=== PATIENT | female | born 1985 | race Caucasian/White ===

== ENCOUNTER 2016-04-10 16:35 | Emergency (ER) | payer OTHER ==
[2016-04-10] MEDS ORDERED: ONDANSETRON 4 MG ORAL DISINTEGRATING TAB (S0181) As Ordered ONE (17:06)
[2016-04-10 17:26] LABS: BASO % 0.4 % (0.0-1.0); EOS # 0.2 K/mm3 (0.0-0.50); LARGE UNSTAINED CELL # 0.2 K/mm3 (0.0-0.4); LARGE UNSTAINED CELL % 1.8 % (0.0-4.0); LYMPH # 2.1 K/mm3 (1.5-6.5); LYMPH % 25.1 % (24.0-44.0); MEAN CORPUSCULAR HEMOGLOBIN 31.2 pg (27.0-33.0); MEAN CORPUSCULAR HGB CONC 34.1 g/dl (32.0-36.5); MEAN CORPUSCULAR VOLUME 91.6 fl (80.0-96.0); MONO # 0.6 K/mm3 (0.0-0.8); MONO % 7.2 % (0.0-5.0); NEUTROPHILS # 5.2 K/mm3 (1.8-7.7); NEUTROPHILS % 62.6 % (36.0-66.0); PLATELET COUNT, AUTOMATED 194 k/mm3 (150-450); RED CELL DISTRIBUTION WIDTH 12.2 % (11.5-14.5); WHITE BLOOD COUNT 8.3 K/mm3 (4.0-10.0)
[2016-04-10 17:26] LABS: CONTROL LINE UCG INT CTR LINE PRESENT
[2016-04-10 17:49] LABS: ANION GAP 8 MEQ/L (8-16); BLOOD UREA NITROGEN 15 MG/DL (7-18); CALCIUM LEVEL 8.8 MG/DL (8.5-10.1); CARBON DIOXIDE LEVEL 27 MEQ/L (21-32); CHLORIDE LEVEL 109 MEQ/L (98-107); CREATININE FOR GFR 0.53 MG/DL (0.55-1.02); GLOMERULAR FILTRATION RATE > 60.0 (>60); GLUCOSE, FASTING 96 MG/DL (70-105); POTASSIUM SERUM 4.1 MEQ/L (3.5-5.1); SODIUM LEVEL 144 MEQ/L (136-145)
--- NOTE | 2016-04-10 18:01 | REP ---
Clinical: Cough . Comparison: None . Technique: PA and lateral. Findings: The mediastinum and cardiac silhouette are normal. The lung nickerson are clear and without acute consolidation, effusion, or pneumothorax. The skeletal structures are intact and normal. Impression: 1. No acute cardiopulmonary process. Signed by Asad Jefferson MD 04/10/2016 05:52 P
--- NOTE | 2016-04-10 18:31 | EDDOCDS ---
Physician Documentation [facility] Name: Xena Caro Age: 30 yrs Sex: Female : 1985 Arrival Date: 04/10/2016 Time: 16:35 Bed PR Private MD: Disposition: 04/10/16 18:05 Discharged to Home/Self Care. Impression: Acute sinusitis, Cough, Nausea and vomiting, Vomiting. - Condition is Stable. - Discharge Instructions: Diarrhea, Clear Liquid Diet, Nausea and Vomiting, Sinusitis, Adult, Cough, Adult. - Prescriptions for Reglan 10 mg Oral Tablet - take 1 tablet by ORAL route every 6 hours take 30 minutes before meals and at bedtime; 20 tablet. Zithromax Z- Jun 250 mg Oral Tablet - take 1 tablet by ORAL route as directed for 5 days Day 1- take two tablets once. Day 2, 3, 4 , 5 take one tablet once daily.; 6 tablet. - Medication Reconciliation, Local Pharmacy Hours form. - [facility]; When: 2 - 3 days; Reason: Recheck today's complaints, Continuance of care. - Problem is new. - Symptoms have improved. - Notes: USE MEDICATIONS INSTRUCTED, FOLLOW UP WITH THE GRADUATE MEDICAL PROGRAM, RETURN TO THE ER IF THE SYMPTOMS WORSEN OR BECOME CONCERNING Historical: - Allergies: Neurontin (Dystonic reaction); seafood (Anaphylaxis); - Home Meds: 1. Ventolin Rotahaler/Rotacaps Inhl 200 mcg as needed - PMHx: Asthma; back pain; - PSHx: 3 c-sections; - Social history: Smoking status: Patient uses tobacco products, heavy tobacco smoker. No barriers to communication noted, The patient speaks fluent [place] Of [place], Speaks appropriately for age. - : The pt / caregiver states he / she is not on anticoagulants. Home medication list is obtained from the patient. - Exposure Risk Screening:: None identified. 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 1 in. (154.94 cm) (R); Pain 5/10; 16:36 Body Mass Index 58.20 (139.71 kg, 154.94 cm) lr2 MDM: 16:58 Financial registration complete. ks16 16:59 [facility] Payment Agreement was scanned into [employer] and attached to record. ks16 17:04 Ondansetron ODT Oral Disintegrating Tablet 4 mg PO once ordered. ck7 17:04 Obtain sample by nasopharyngeal swab ordered. ck7 17:04 UA Ordered. EDMS 17:04 CBC with Diff Ordered. EDMS 17:04 MED Profile Ordered. EDMS 17:04 -Influenza A&B Rapid Antigen - Nose Ordered. EDMS 17:06 Chest, 2 View (pa\E\lat) Ordered. EDMS 17:19 UCG- In Lab Ordered. EDMS 18:00 UA Reviewed. ck7 18:00 CBC with Diff Reviewed. ck7 18:00 MED Profile Reviewed. ck7 18:00 -Influenza A&B Rapid Antigen - Nose Reviewed. ck7 18:00 UCG- In Lab Reviewed. ck7 Administered Medications: 17:17 Drug: Ondansetron ODT 4 mg [ondansetron 4 mg disintegrating tablet (1 tabs)] Route: PO; mlb1 Signatures: Dispatcher [employer] EDAZ Santana Jacobsen RN RN mlb1 Pj Fernandez, RPA-C RPA-Cck7 Elena Coreas,LILIANA RN kc3 Talita Hwang, Reg Reg ks16 The chart was reviewed and I authenticate all verbal orders and agree with the evaluation and treatment provided.Corrections: (The following items were deleted from the chart) 17:18 17:04 UCG by Nursing ordered. ck7 mlb1 Attachments: 16:59 [facility] Payment Agreement [email or web address] MTDD
--- NOTE | 2016-04-10 18:31 | EDDOCDS ---
Nurse's Notes [facility] Name: Xena Caro Age: 30 yrs Sex: Female : 1985 Arrival Date: 04/10/2016 Time: 16:35 Bed PR Private MD: Diagnosis: Acute sinusitis;Cough;Nausea and vomiting;Vomiting Presentation: 04/10 16:38 Presenting complaint: Patient states: n/v, breast tenderness, dizziness, congestion and kc3 fever at home x 2 days. Pt reports not sure if or not. Adult Sepsis Screening: The patient does not have new or worsening altered mentation. Patient's respiratory rate is less than 22. Systolic blood pressure is greater than 100. Patient has a qSOFA score of 0- Negative Sepsis Screen. Suicide/Homicide risk assessment- the patient denies having any suicidal and/or homicidal ideations and does not present with any other emotional, behavioral or mental health complaints. 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 Transition of care: patient was not received from another setting of care. 16:38 Acuity: JASON Level 4 kc3 16:38 Method Of Arrival: Walkin/Carried/Asstd kc3 Triage Assessment: 16:41 General: Appears in no apparent distress, comfortable, Behavior is appropriate for age, kc3 cooperative. Pain: Location: head Pain currently is 5 out of 10 on a pain scale. HIV screening NA for this visit Offered previously. Respiratory: Respiratory effort is even, unlabored. GI: Reports nausea. 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 Ventolin Rotahaler/Rotacaps Inhl 200 mcg as needed - PMHx: Asthma; back pain; - PSHx: 3 c-sections; - Social history: Smoking status: Patient uses tobacco products, heavy tobacco smoker. No barriers to communication noted, The patient speaks fluent Lithuanian, Speaks appropriately for age. - : The pt / caregiver states he / she is not on anticoagulants. Home medication list is obtained from the patient. - Exposure Risk Screening:: None identified. Screenin:26 Screening information is obtained from. mlb1 Assessment: 18:26 General: pt not found in waiting, called several times over the past 15 mins. mlb1 Vital Signs: 16:36 BP 178 / 67; Pulse 88; Resp 18; Temp 98.6(O); Pulse Ox 99% on R/A; Weight 139.71 kg lr2 (R); Height 5 ft. 1 in. (154.94 cm) (R); Pain 5/10; 16:36 Body Mass Index 58.20 (139.71 kg, 154.94 cm) lr2 Vitals: 16:36 Log In Time: April 10, 2016 at 16:35. lr2 ED Course: 16:36 Patient visited by Nicolasa Simental. lr2 16:36 Patient moved to Waiting lr2 16:39 Patient moved to Pre RCE lr2 16:40 Triage Initiated kc3 16:42 [facility] ck7 16:42 Joe Corbin MD is Attending Physician. ck7 16:42 Patient visited by Pj Fernandez RPA-C. ck7 16:42 Patient moved to Triage 1 kc3 16:59 [facility] Payment Agreement was scanned into [employer] and attached to record. ks16 17:17 Patient visited by Pj Fernandez RPA-C. ck7 17:17 -Influenza A&B Rapid Antigen - Nose Sent. mlb1 17:17 MED Profile Sent. mlb1 17:17 CBC with Diff Sent. mlb1 17:18 UA Sent. mlb1 17:21 Patient moved to TR1 mlb1 18:00 Patient visited by Pj Fernandez RPA-C. ck7 18:04 [facility] is Referral Physician. ck7 18:07 Patient moved to PR2 / 26 mlb1 18:30 Patient visited by Santana Jacobsen, LILIANA. mlb1 Administered Medications: 17:17 Drug: Ondansetron ODT 4 mg [ondansetron 4 mg disintegrating tablet (1 tabs)] Route: PO; mlb1 Order Results: Lab Order: UA; SPEC'M 04/10/16 17:10 Test: APPEARANCE, URINE; Value: HAZY; Range: CLEAR; Status: F Test: COLOR, URINE; Value: YELLOW; Range: YELLOW; Status: F Test: PH,URINE; Value: 7.0; Range: 5.0-9.0; Units: UNITS; Status: F Test: SPECIFIC GRAVITY URINE AUTO; Value: 1.016; Range: 1.002-1.035; Status: F Test: PROTEIN, URINE AUTO; Value: NEGATIVE; Range: NEGATIVE; Units: mg/dL; Status: F Test: GLUCOSE, URINE (UA) AUTO; Value: NEGATIVE; Range: NEGATIVE; Units: mg/dL; Status: F Test: KETONE, URINE AUTO; Value: NEGATIVE; Range: NEGATIVE; Units: mg/dL; Status: F Test: UROBILINOGEN, URINE AUTO; Value: 0.2; Range: 0.0-2.0; Units: mg/dL; Status: F Test: BILIRUBIN, URINE AUTO; Value: NEGATIVE; Range: NEGATIVE; Status: F Test: NITRITE, URINE AUTO; Value: NEGATIVE; Range: NEGATIVE; Status: F Test: LEUKOCYTE ESTERASE, URINE AUTO; Value: TRACE; Range: NEGATIVE; Abnormal: Above high normal; Status: F Test: BLOOD, URINE BLOOD; Value: NEGATIVE; Range: NEGATIVE; Status: F Test: WBC, URINE AUTO; Value: 7; Range: 0-3; Abnormal: Above high normal; Units: /HPF; Status: F Test: RBC, URINE AUTO; Value: 4; Range: 0-3; Abnormal: Above high normal; Units: /HPF; Status: F Test: BACTERIA, URINE AUTO; Value: NEGATIVE; Range: NEGATIVE; Status: F Test: SQUAMOUS EPITHELIAL CELL UR AU; Value: 3; Range: 0-6; Units: /HPF; Status: F Test: MUCUS, URINE; Value: SMALL; Range: NEGATIVE; Status: F Test: HYALINE CAST, URINE AUTO; Value: 0; Range: 0-1; Units: /LPF; Status: F Lab Order: CBC with Diff; SPEC'M 04/10/16 17:13 Test: WHITE BLOOD COUNT; Value: 8.3; Range: 4.0-10.0; Units: K/mm3; Status: F Test: RED BLOOD COUNT; Value: 4.19; Range: 4.00-5.40; Units: M/mm3; Status: F Test: HEMOGLOBIN; Value: 13.1; Range: 12.0-16.0; Units: g/dl; Status: F Test: HEMATOCRIT; Value: 38.4; Range: 36.0-47.0; Units: %; Status: F Test: MEAN CORPUSCULAR VOLUME; Value: 91.6; Range: 80.0-96.0; Units: fl; Status: F Test: MEAN CORPUSCULAR HEMOGLOBIN; Value: 31.2; Range: 27.0-33.0; Units: pg; Status: F Test: MEAN CORPUSCULAR HGB CONC; Value: 34.1; Range: 32.0-36.5; Units: g/dl; Status: F Test: RED CELL DISTRIBUTION WIDTH; Value: 12.2; Range: 11.5-14.5; Units: %; Status: F Test: PLATELET COUNT, AUTOMATED; Value: 194; Range: 150-450; Units: k/mm3; Status: F Test: NEUTROPHILS %; Value: 62.6; Range: 36.0-66.0; Units: %; Status: F Test: LYMPH %; Value: 25.1; Range: 24.0-44.0; Units: %; Status: F Test: MONO %; Value: 7.2; Range: 0.0-5.0; Abnormal: Above high normal; Units: %; Status: F Test: EOS %; Value: 3.0; Range: 0.0-3.0; Units: %; Status: F Test: BASO %; Value: 0.4; Range: 0.0-1.0; Units: %; Status: F Test: LARGE UNSTAINED CELL %; Value: 1.8; Range: 0.0-4.0; Units: %; Status: F Test: NEUTROPHILS #; Value: 5.2; Range: 1.8-7.7; Units: K/mm3; Status: F Test: LYMPH #; Value: 2.1; Range: 1.5-6.5; Units: K/mm3; Status: F Test: MONO #; Value: 0.6; Range: 0.0-0.8; Units: K/mm3; Status: F Test: EOS #; Value: 0.2; Range: 0.0-0.50; Units: K/mm3; Status: F Test: BASO #; Value: 0.0; Range: 0.0-0.2; Units: K/mm3; Status: F Test: LARGE UNSTAINED CELL #; Value: 0.2; Range: 0.0-0.4; Units: K/mm3; Status: F Lab Order: MED Profile; SPEC'M 04/10/16 17:13 Test: GLUCOSE, FASTING; Value: 96; Range: 70-105; Units: MG/DL; Status: F Test: BLOOD UREA NITROGEN; Value: 15; Range: 7-18; Units: MG/DL; Status: F Test: CREATININE FOR GFR; Value: 0.53; Range: 0.55-1.02; Abnormal: Below low normal; Units: MG/DL; Status: F Test: GLOMERULAR FILTRATION RATE; Value: > 60.0; Range: >60; Status: F Test: SODIUM LEVEL; Value: 144; Range: 136-145; Units: MEQ/L; Status: F Test: POTASSIUM SERUM; Value: 4.1; Range: 3.5-5.1; Units: MEQ/L; Status: F Test: CHLORIDE LEVEL; Value: 109; Range: 98-107; Abnormal: Above high normal; Units: MEQ/L; Status: F Test: CARBON DIOXIDE LEVEL; Value: 27; Range: 21-32; Units: MEQ/L; Status: F Test: ANION GAP; Value: 8; Range: 8-16; Units: MEQ/L; Status: F Test: CALCIUM LEVEL; Value: 8.8; Range: 8.5-10.1; Units: MG/DL; Status: F Test Note: ; Units are mL/min/1.73 m2 Chronic Kidney Disease Staging per NKF: Stage I & II GFR >=60 Normal to Mildly Decreased Stage III GFR 30-59 Moderately Decreased Stage IV GFR 15-29 Severely Decreased Stage V GFR <15 Very Little GFR Left ESRD GFR <15 on TOW BOAT CAPTAIN Lab Order: -Influenza A&B Rapid Antigen - Nose; SPEC'M 04/10/16 17:10 Test: INFLUENZA A RAPID SCR by ICA; Value: INFLUENZA A RESULTS NEGATIVE; Status: F Test: INFLUENZA A RAPID SCR by ICA; Value: Comments:; Status: F Test: INFLUENZA B RAPID SCR by ICA; Value: INFLUENZA B RESULTS NEGATIVE; Status: F Test Note: ; The Influenza test is a direct rapid immunoassay for the qualitative detection of Influenza viral antigen. Cell culture (Viral Culture) testing should be considered to confirm NEGATIVE results and to assist in detecting other viruses that can provide similar clinical symptoms. Please contact the lab within 24 hours ([phone]) if confirmatory testing is desired. Lab Order: UCG- In Lab; SPEC'M 04/10/16 17:08 Test: URINE PREG TEST; Value: NEGATIVE; Range: NEGATIVE; Status: F Outcome: 18:05 Discharge ordered by Provider. ck7 18:27 A call has been made regarding followup for AMA or LWBS , I was unable to contact the mlb1 patient by phone. A letter and discharge instructions has been mailed. 18:28 Discharge Assessment: patient administered narcotics - no. The following High Risk [facility] Discharge criteria are identified: Yes, Kasey Douglas PFS, discharge instructions to be mailed. Eloped from waiting room. Condition: good. 18:30 Patient left the ED. b1 Signatures: Santana Jacobsen, RN RN mlb1 Pj Fernandez, RPA-C RPA-Cck7 Elena Coreas RN RN kc3 Talita Hwang, Reg Reg ks16 Nicolasa Simental2 [facility]
--- NOTE | 2016-04-12 19:31 | EDDOCDS ---
Nurse's Notes [facility] Name: Xena Caro Age: 30 yrs Sex: Female : 1985 Arrival Date: 04/10/2016 Time: 16:35 Bed PR Private MD: Diagnosis: Acute sinusitis;Cough;Nausea and vomiting;Vomiting Presentation: 04/10 16:38 Presenting complaint: Patient states: n/v, breast tenderness, dizziness, congestion and kc3 fever at home x 2 days. Pt reports not sure if or not. Adult Sepsis Screening: The patient does not have new or worsening altered mentation. Patient's respiratory rate is less than 22. Systolic blood pressure is greater than 100. Patient has a qSOFA score of 0- Negative Sepsis Screen. Suicide/Homicide risk assessment- the patient denies having any suicidal and/or homicidal ideations and does not present with any other emotional, behavioral or mental health complaints. 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 Transition of care: patient was not received from another setting of care. 16:38 Acuity: JASON Level 4 kc3 16:38 Method Of Arrival: Walkin/Carried/Asstd kc3 Triage Assessment: 16:41 General: Appears in no apparent distress, comfortable, Behavior is appropriate for age, kc3 cooperative. Pain: Location: head Pain currently is 5 out of 10 on a pain scale. HIV screening NA for this visit Offered previously. Respiratory: Respiratory effort is even, unlabored. GI: Reports nausea. 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 Ventolin Rotahaler/Rotacaps Inhl 200 mcg as needed - PMHx: Asthma; back pain; - PSHx: 3 c-sections; - Social history: Smoking status: Patient uses tobacco products, heavy tobacco smoker. No barriers to communication noted, The patient speaks fluent [place]an, Speaks appropriately for age. - : The pt / caregiver states he / she is not on anticoagulants. Home medication list is obtained from the patient. - Exposure Risk Screening:: None identified. Screenin:26 Screening information is obtained from. mlb1 Assessment: 18:26 General: pt not found in waiting, called several times over the past 15 mins. mlb1 Vital Signs: 16:36 BP 178 / 67; Pulse 88; Resp 18; Temp 98.6(O); Pulse Ox 99% on R/A; Weight 139.71 kg lr2 (R); Height 5 ft. 1 in. (154.94 cm) (R); Pain 5/10; 16:36 Body Mass Index 58.20 (139.71 kg, 154.94 cm) lr2 Vitals: 16:36 Log In Time: April 10, 2016 at 16:35. lr2 ED Course: 16:36 Patient visited by Nicolasa Simental. lr2 16:36 Patient moved to Waiting lr2 16:39 Patient moved to Pre RCE lr2 16:40 Triage Initiated kc3 16:42 Pj Fernandez RPA-C is [facility]. ck7 16:42 Joe Corbin MD is Attending Physician. ck7 16:42 Patient visited by Pj Fernandez RPA-C. ck7 16:42 Patient moved to Triage 1 kc3 16:59 [facility] Payment Agreement was scanned into [employer] and attached to record. ks16 17:17 Patient visited by Pj Fernandez RPA-C. ck7 17:17 -Influenza A&B Rapid Antigen - Nose Sent. mlb1 17:17 MED Profile Sent. mlb1 17:17 CBC with Diff Sent. mlb1 17:18 UA Sent. mlb1 17:21 Patient moved to TR1 mlb1 18:00 Patient visited by Pj Fernandez RPA-C. ck7 18:04 [facility] is Referral Physician. ck7 18:07 Patient moved to PR mlb1 18:30 Patient visited by Santana Jacobsen, LILIANA. mlb1 18:41 Chest, 2 View (pa\E\lat) Returned. EDMS 04/11 09:04 T-Sheet-- Draft Copy was scanned into [employer] and attached to record. [facility] Administered Medications: 04/10 17:17 Drug: Ondansetron ODT 4 mg [ondansetron 4 mg disintegrating tablet (1 tabs)] Route: PO; mlb1 Order Results: Lab Order: UA; SPEC'M 04/10/16 17:10 Test: APPEARANCE, URINE; Value: HAZY; Range: CLEAR; Status: F Test: COLOR, URINE; Value: YELLOW; Range: YELLOW; Status: F Test: PH,URINE; Value: 7.0; Range: 5.0-9.0; Units: UNITS; Status: F Test: SPECIFIC GRAVITY URINE AUTO; Value: 1.016; Range: 1.002-1.035; Status: F Test: PROTEIN, URINE AUTO; Value: NEGATIVE; Range: NEGATIVE; Units: mg/dL; Status: F Test: GLUCOSE, URINE (UA) AUTO; Value: NEGATIVE; Range: NEGATIVE; Units: mg/dL; Status: F Test: KETONE, URINE AUTO; Value: NEGATIVE; Range: NEGATIVE; Units: mg/dL; Status: F Test: UROBILINOGEN, URINE AUTO; Value: 0.2; Range: 0.0-2.0; Units: mg/dL; Status: F Test: BILIRUBIN, URINE AUTO; Value: NEGATIVE; Range: NEGATIVE; Status: F Test: NITRITE, URINE AUTO; Value: NEGATIVE; Range: NEGATIVE; Status: F Test: LEUKOCYTE ESTERASE, URINE AUTO; Value: TRACE; Range: NEGATIVE; Abnormal: Above high normal; Status: F Test: BLOOD, URINE BLOOD; Value: NEGATIVE; Range: NEGATIVE; Status: F Test: WBC, URINE AUTO; Value: 7; Range: 0-3; Abnormal: Above high normal; Units: /HPF; Status: F Test: RBC, URINE AUTO; Value: 4; Range: 0-3; Abnormal: Above high normal; Units: /HPF; Status: F Test: BACTERIA, URINE AUTO; Value: NEGATIVE; Range: NEGATIVE; Status: F Test: SQUAMOUS EPITHELIAL CELL UR AU; Value: 3; Range: 0-6; Units: /HPF; Status: F Test: MUCUS, URINE; Value: SMALL; Range: NEGATIVE; Status: F Test: HYALINE CAST, URINE AUTO; Value: 0; Range: 0-1; Units: /LPF; Status: F Lab Order: CBC with Diff; SPEC'M 04/10/16 17:13 Test: WHITE BLOOD COUNT; Value: 8.3; Range: 4.0-10.0; Units: K/mm3; Status: F Test: RED BLOOD COUNT; Value: 4.19; Range: 4.00-5.40; Units: M/mm3; Status: F Test: HEMOGLOBIN; Value: 13.1; Range: 12.0-16.0; Units: g/dl; Status: F Test: HEMATOCRIT; Value: 38.4; Range: 36.0-47.0; Units: %; Status: F Test: MEAN CORPUSCULAR VOLUME; Value: 91.6; Range: 80.0-96.0; Units: fl; Status: F Test: MEAN CORPUSCULAR HEMOGLOBIN; Value: 31.2; Range: 27.0-33.0; Units: pg; Status: F Test: MEAN CORPUSCULAR HGB CONC; Value: 34.1; Range: 32.0-36.5; Units: g/dl; Status: F Test: RED CELL DISTRIBUTION WIDTH; Value: 12.2; Range: 11.5-14.5; Units: %; Status: F Test: PLATELET COUNT, AUTOMATED; Value: 194; Range: 150-450; Units: k/mm3; Status: F Test: NEUTROPHILS %; Value: 62.6; Range: 36.0-66.0; Units: %; Status: F Test: LYMPH %; Value: 25.1; Range: 24.0-44.0; Units: %; Status: F Test: MONO %; Value: 7.2; Range: 0.0-5.0; Abnormal: Above high normal; Units: %; Status: F Test: EOS %; Value: 3.0; Range: 0.0-3.0; Units: %; Status: F Test: BASO %; Value: 0.4; Range: 0.0-1.0; Units: %; Status: F Test: LARGE UNSTAINED CELL %; Value: 1.8; Range: 0.0-4.0; Units: %; Status: F Test: NEUTROPHILS #; Value: 5.2; Range: 1.8-7.7; Units: K/mm3; Status: F Test: LYMPH #; Value: 2.1; Range: 1.5-6.5; Units: K/mm3; Status: F Test: MONO #; Value: 0.6; Range: 0.0-0.8; Units: K/mm3; Status: F Test: EOS #; Value: 0.2; Range: 0.0-0.50; Units: K/mm3; Status: F Test: BASO #; Value: 0.0; Range: 0.0-0.2; Units: K/mm3; Status: F Test: LARGE UNSTAINED CELL #; Value: 0.2; Range: 0.0-0.4; Units: K/mm3; Status: F Lab Order: MED Profile; SPEC'M 04/10/16 17:13 Test: GLUCOSE, FASTING; Value: 96; Range: 70-105; Units: MG/DL; Status: F Test: BLOOD UREA NITROGEN; Value: 15; Range: 7-18; Units: MG/DL; Status: F Test: CREATININE FOR GFR; Value: 0.53; Range: 0.55-1.02; Abnormal: Below low normal; Units: MG/DL; Status: F Test: GLOMERULAR FILTRATION RATE; Value: > 60.0; Range: >60; Status: F Test: SODIUM LEVEL; Value: 144; Range: 136-145; Units: MEQ/L; Status: F Test: POTASSIUM SERUM; Value: 4.1; Range: 3.5-5.1; Units: MEQ/L; Status: F Test: CHLORIDE LEVEL; Value: 109; Range: 98-107; Abnormal: Above high normal; Units: MEQ/L; Status: F Test: CARBON DIOXIDE LEVEL; Value: 27; Range: 21-32; Units: MEQ/L; Status: F Test: ANION GAP; Value: 8; Range: 8-16; Units: MEQ/L; Status: F Test: CALCIUM LEVEL; Value: 8.8; Range: 8.5-10.1; Units: MG/DL; Status: F Test Note: ; Units are mL/min/1.73 m2 Chronic Kidney Disease Staging per NKF: Stage I & II GFR >=60 Normal to Mildly Decreased Stage III GFR 30-59 Moderately Decreased Stage IV GFR 15-29 Severely Decreased Stage V GFR <15 Very Little GFR Left ESRD GFR <15 on PARACHUTE INSPECTOR Lab Order: -Influenza A&B Rapid Antigen - Nose; SPEC'M 04/10/16 17:10 Test: INFLUENZA A RAPID SCR by ICA; Value: INFLUENZA A RESULTS NEGATIVE; Status: F Test: INFLUENZA A RAPID SCR by ICA; Value: Comments:; Status: F Test: INFLUENZA B RAPID SCR by ICA; Value: INFLUENZA B RESULTS NEGATIVE; Status: F Test Note: ; The Influenza test is a direct rapid immunoassay for the qualitative detection of Influenza viral antigen. Cell culture (Viral Culture) testing should be considered to confirm NEGATIVE results and to assist in detecting other viruses that can provide similar clinical symptoms. Please contact the lab within 24 hours ([phone]) if confirmatory testing is desired. Lab Order: UCG- In Lab; SPEC'M 04/10/16 17:08 Test: URINE PREG TEST; Value: NEGATIVE; Range: NEGATIVE; Status: F Radiology Order: Chest, 2 View (pa\E\lat) Test: Chest, 2 View (pa\E\lat) REASON FOR EXAMINATION: Cough; Clinical: Cough .; ; Comparison: None .; ; Technique: PA and lateral.; ; Findings:; The mediastinum and cardiac silhouette are normal. The lung nickerson are clear and; without acute consolidation, effusion, or pneumothorax. The skeletal structures; are intact and normal.; ; Impression:; 1. No acute cardiopulmonary process.; ; ; Signed by; Asad Jefferson MD 04/10/2016 05:52 P; Outcome: 18:05 Discharge ordered by Provider. ck7 18:27 A call has been made regarding followup for AMA or LWBS , I was unable to contact the b1 patient by phone. A letter and discharge instructions has been mailed. 18:28 Discharge Assessment: patient administered narcotics - no. The following High Risk [facility] Discharge criteria are identified: Yes, Kasey Douglas PFS, discharge instructions to be mailed. Eloped from waiting room. Condition: good. 18:30 Patient left the ED. [facility] Signatures: Dispatcher [employer] EDMS Santana Jacobsen RN RN mlb1 Pj Fernandez, RPA-C RPA-Cck7 Elena Coreas,RN RN [email or web address] Talita Hwang, Reg Reg ks16 Ramiro, Nicolasa Anguiano Chart Complete MTDD
--- NOTE | 2016-04-12 19:31 | EDDOCDS ---
Physician Documentation [facility] Name: Xena Caro Age: 30 yrs Sex: Female : 1985 Arrival Date: 04/10/2016 Time: 16:35 Bed PR Private MD: Disposition: 04/10/16 18:05 Discharged to Home/Self Care. Impression: Acute sinusitis, Cough, Nausea and vomiting, Vomiting. - Condition is Stable. - Discharge Instructions: Diarrhea, Clear Liquid Diet, Nausea and Vomiting, Sinusitis, Adult, Cough, Adult. - Prescriptions for Reglan 10 mg Oral Tablet - take 1 tablet by ORAL route every 6 hours take 30 minutes before meals and at bedtime; 20 tablet. Zithromax Z- Jun 250 mg Oral Tablet - take 1 tablet by ORAL route as directed for 5 days Day 1- take two tablets once. Day 2, 3, 4 , 5 take one tablet once daily.; 6 tablet. - Medication Reconciliation, Local Pharmacy Hours form. - [facility] up[facility]; When: 2 - 3 days; Reason: Recheck today's complaints, Continuance of care. - Problem is new. - Symptoms have improved. - Notes: USE MEDICATIONS INSTRUCTED, FOLLOW UP WITH THE GRADUATE MEDICAL PROGRAM, RETURN TO THE ER IF THE SYMPTOMS WORSEN OR BECOME CONCERNING Historical: - Allergies: Neurontin (Dystonic reaction); seafood (Anaphylaxis); - Home Meds: 1. Ventolin Rotahaler/Rotacaps Inhl 200 mcg as needed - PMHx: Asthma; back pain; - PSHx: 3 c-sections; - Social history: Smoking status: Patient uses tobacco products, heavy tobacco smoker. No barriers to communication noted, The patient speaks fluent Australian, Speaks appropriately for age. - : The pt / caregiver states he / she is not on anticoagulants. Home medication list is obtained from the patient. - Exposure Risk Screening:: None identified. 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 1 in. (154.94 cm) (R); Pain 5/10; 16:36 Body Mass Index 58.20 (139.71 kg, 154.94 cm) lr2 MDM: 16:58 Financial registration complete. ks16 16:59 [facility] Payment Agreement was scanned into [email or web address] and attached to record. [email or web address] 17:04 Ondansetron ODT Oral Disintegrating Tablet 4 mg PO once ordered. ck7 17:04 Obtain sample by nasopharyngeal swab ordered. ck7 17:04 UA Ordered. EDMS 17:04 CBC with Diff Ordered. EDMS 17:04 MED Profile Ordered. EDMS 17:04 -Influenza A&B Rapid Antigen - Nose Ordered. EDMS 17:06 Chest, 2 View (pa\E\lat) Ordered. EDMS 17:19 UCG- In Lab Ordered. EDMS 18:00 UA Reviewed. ck7 18:00 CBC with Diff Reviewed. ck7 18:00 MED Profile Reviewed. ck7 18:00 -Influenza A&B Rapid Antigen - Nose Reviewed. ck7 18:00 UCG- In Lab Reviewed. 04/11 09:04 T-Sheet-- Draft Copy was scanned into [email or web address] and attached to record. [facility] Administered Medications: 04/10 17:17 Drug: Ondansetron ODT 4 mg [ondansetron 4 mg disintegrating tablet (1 tabs)] Route: PO; mlb1 Signatures: Dispatcher [employer] Santana Purdy RN RN mlb1 Pj Fernandez, RPA-C RPA-Cck7 Elena Coreas RN RN aashish3 Talita Hwang, Reg Reg ks16 Roseanne Rubio [facility] The chart was reviewed and I authenticate all verbal orders and agree with the evaluation and treatment provided.Corrections: (The following items were deleted from the chart) 17:18 17:04 UCG by Nursing ordered. ck7 mlb1 Attachments: 16:59 [facility] Payment Agreement 04/11 09:04 T-Sheet-- Draft Copy [facility] Chart Complete MTDD
--- NOTE | 2016-04-12 19:31 | EDDOCDS ---
Physician Documentation [facility] Name: Xena Caro Age: 30 yrs Sex: Female : 1985 Arrival Date: 04/10/2016 Time: 16:35 Bed PR Private MD: Disposition: 04/10/16 18:05 Discharged to Home/Self Care. Impression: Acute sinusitis, Cough, Nausea and vomiting, Vomiting. - Condition is Stable. - Discharge Instructions: Diarrhea, Clear Liquid Diet, Nausea and Vomiting, Sinusitis, Adult, Cough, Adult. - Prescriptions for Reglan 10 mg Oral Tablet - take 1 tablet by ORAL route every 6 hours take 30 minutes before meals and at bedtime; 20 tablet. Zithromax Z- Jun 250 mg Oral Tablet - take 1 tablet by ORAL route as directed for 5 days Day 1- take two tablets once. Day 2, 3, 4 , 5 take one tablet once daily.; 6 tablet. - Medication Reconciliation, Local Pharmacy Hours form. - Follow up: [facility]; When: 2 - 3 days; Reason: Recheck today's complaints, Continuance of care. - Problem is new. - Symptoms have improved. - Notes: USE MEDICATIONS INSTRUCTED, FOLLOW UP WITH THE GRADUATE MEDICAL PROGRAM, RETURN TO THE ER IF THE SYMPTOMS WORSEN OR BECOME CONCERNING Historical: - Allergies: Neurontin (Dystonic reaction); seafood (Anaphylaxis); - Home Meds: 1. Ventolin Rotahaler/Rotacaps Inhl 200 mcg as needed - PMHx: Asthma; back pain; - PSHx: 3 c-sections; - Social history: Smoking status: Patient uses tobacco products, heavy tobacco smoker. No barriers to communication noted, The patient speaks fluent Czech, Speaks appropriately for age. - : The pt / caregiver states he / she is not on anticoagulants. Home medication list is obtained from the patient. - Exposure Risk Screening:: None identified. 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 1 in. (154.94 cm) (R); Pain 5/10; 16:36 Body Mass Index 58.20 (139.71 kg, 154.94 cm) lr2 MDM: 16:58 Financial registration complete. ks16 16:59 [facility] Payment Agreement was scanned into [employer] and attached to record. [email or web address] 17:04 Ondansetron ODT Oral Disintegrating Tablet 4 mg PO once ordered. ck7 17:04 Obtain sample by nasopharyngeal swab ordered. ck7 17:04 UA Ordered. EDMS 17:04 CBC with Diff Ordered. EDMS 17:04 MED Profile Ordered. EDMS 17:04 -Influenza A&B Rapid Antigen - Nose Ordered. EDMS 17:06 Chest, 2 View (pa\E\lat) Ordered. EDMS 17:19 UCG- In Lab Ordered. EDMS 18:00 UA Reviewed. ck7 18:00 CBC with Diff Reviewed. ck7 18:00 MED Profile Reviewed. ck7 18:00 -Influenza A&B Rapid Antigen - Nose Reviewed. ck7 18:00 UCG- In Lab Reviewed. 04/11 09:04 T-Sheet-- Draft Copy was scanned into [employer] and attached to record. [facility] Administered Medications: 04/10 17:17 Drug: Ondansetron ODT 4 mg [ondansetron 4 mg disintegrating tablet (1 tabs)] Route: PO; mlb1 Signatures: Dispatcher [employer] Santana Purdy RN RN mlb1 Pj Fernandez, RPA-C RPA-Cck7 Elena Coreas RN RN aashish3 Talita Hwang, Reg Reg ks16 Roseanne Rubio [facility] The chart was reviewed and I authenticate all verbal orders and agree with the evaluation and treatment provided.Corrections: (The following items were deleted from the chart) 17:18 17:04 UCG by Nursing ordered. ck7 mlb1 Attachments: 16:59 [facility] Payment Agreement 04/11 09:04 T-Sheet-- Draft Copy [facility] Chart Complete MTDD
== END 2016-04-10 18:26 | disposition left against medical advice (07) ==
LOC: M ED 16:35
DX: J01.90 Acute sinusitis, unspecified (principal); R05 Cough; R11.2 Nausea with vomiting, unspecified; R19.7 Diarrhea, unspecified; J45.909 Unspecified asthma, uncomplicated; M54.9 Dorsalgia, unspecified; Z72.0 Tobacco use; Z88.8 Allergy status to other drugs, medicaments and biological substances; Z91.013 Allergy to seafood

== ENCOUNTER 2016-08-03 11:36 | Emergency (ER) | payer OTHER ==
[~2016-08-03] VITALS: Ht 157.5 cm; Wt 142.9 kg
[2016-08-03] MEDS ORDERED: IBUP-1022 PO (11:53)
[2016-08-03 12:35] VITALS: BP 134/82
[2016-08-03] MEDS ORDERED: IBUP80TA PO (12:35)
[2016-08-03] MEDS ORDERED: AMOX500C PO (12:35)
== END 2016-08-03 12:47 | disposition home or self-care (01) ==
LOC: M ED 12:14
DX: S39.012A Strain of muscle, fascia and tendon of lower back, initial encounter (principal); V47.5XXA Car driver injured in collision with fixed or stationary object in traffic accident, initial encounter; Y92.410 Unspecified street and highway as the place of occurrence of the external cause; Y93.9 Activity, unspecified; Y99.8 Other external cause status; K02.9 Dental caries, unspecified; J45.909 Unspecified asthma, uncomplicated; F17.200 Nicotine dependence, unspecified, uncomplicated; Z91.013 Allergy to seafood

== ENCOUNTER 2016-09-19 08:29 | Emergency (ER) | payer OTHER ==
[~2016-09-19] VITALS: Ht 154.9 cm; Wt 127.0 kg
[~2016-09-19 08:29] MED LIST: AMOX500C PO; IBUP-1022 PO; IBUP80TA PO
[2016-09-19 08:43] VITALS: BP 142/86
[2016-09-19] MEDS ORDERED: ALBU17IN INH ×2 (08:46→09:03)
[2016-09-19] MEDS ORDERED: AMOX500C PO (09:05)
== END 2016-09-19 09:09 | disposition home or self-care (01) ==
LOC: M ED 08:29
DX: F41.1 Generalized anxiety disorder (principal); R51 Headache; R42 Dizziness and giddiness; J45.909 Unspecified asthma, uncomplicated; F17.210 Nicotine dependence, cigarettes, uncomplicated; Z88.8 Allergy status to other drugs, medicaments and biological substances; Z91.013 Allergy to seafood

== ENCOUNTER 2016-11-10 16:29 | Emergency (ER) | payer OTHER ==
[~2016-11-10] VITALS: Ht 157.5 cm; Wt 139.0 kg
[~2016-11-10 16:29] MED LIST changes: +ALBU17IN INH
[2016-11-10 17:33] LABS: ADD MORPHOLOGY? NO; BASO # 0.1 10^3/uL (0.0-0.2); BASO % 0.4 % (0.0-1.0); EOS # 0.5 10^3/uL (0.0-0.50); EOS % 4.1 % (0.0-3.0); IMMATURE GRANULOCYTE % 0.3 % (0-0); LYMPH # 2.5 10^3/uL (1.5-4.5); LYMPH % 21.9 % (24.0-44.0); MEAN CORPUSCULAR HEMOGLOBIN 31.2 pg (27.0-33.0); MEAN CORPUSCULAR HGB CONC 33.6 g/dl (32.0-36.5); MEAN CORPUSCULAR VOLUME 92.9 fl (80.0-96.0); MONO # 0.9 10^3/uL (0.0-0.8); MONO % 7.6 % (0.0-5.0); NEUTROPHILS # 7.3 10^3/uL (1.8-7.7); NEUTROPHILS % 65.7 % (36.0-66.0); PLATELET COUNT, AUTOMATED 236 10^3/uL (150-450); RED CELL DISTRIBUTION WIDTH 11.9 % (11.5-14.5); WHITE BLOOD COUNT 11.2 10^3/uL (4.0-10.0)
[2016-11-10 17:59] LABS: ALKALINE PHOSPHATASE 53 U/L (45-117); ALT/SGPT 31 U/L (12-78); ANION GAP 6 MEQ/L (8-16); AST/SGOT 14 U/L (15-37); BLOOD UREA NITROGEN 17 MG/DL (7-18); CALCIUM LEVEL 8.7 MG/DL (8.5-10.1); CARBON DIOXIDE LEVEL 25 MEQ/L (21-32); CHLORIDE LEVEL 110 MEQ/L (98-107); CREATININE FOR GFR 0.59 MG/DL (0.55-1.02); GLOMERULAR FILTRATION RATE > 60.0 (>60); GLUCOSE, FASTING 88 MG/DL (70-105); SODIUM LEVEL 141 MEQ/L (136-145)
[2016-11-10 18:00] LABS: ALBUMIN 3.7 GM/DL (3.2-5.2); ALBUMIN/GLOBULIN RATIO 1.19 (1.00-1.93); BILIRUBIN,DIRECT < 0.1 MG/DL (0.0-0.2); BILIRUBIN,TOTAL 0.3 MG/DL (0.2-1.0); TOTAL PROTEIN 6.8 GM/DL (6.4-8.2)
[2016-11-10] MEDS ORDERED: BACT800T5 PO (18:08)
[2016-11-10 18:14] VITALS: BP 131/101
== END 2016-11-10 18:17 | disposition home or self-care (01) ==
LOC: M ED 16:29
DX: N39.0 Urinary tract infection, site not specified (principal); Z32.02 Encounter for pregnancy test, result negative; Z72.0 Tobacco use

== ENCOUNTER 2017-01-13 09:22 | Emergency (ER) | payer OTHER ==
[~2017-01-13] VITALS: Ht 157.5 cm; Wt 130.9 kg
[~2017-01-13 09:22] MED LIST changes: +BACT800T5 PO
[2017-01-13 09:23] VITALS: BP 149/75
[2017-01-13] MEDS ORDERED: PERC5TAB12 PO (09:44)
== END 2017-01-13 10:04 | disposition home or self-care (01) ==
LOC: M ED 09:22
DX: G89.29 Other chronic pain (principal); M25.562 Pain in left knee; J45.909 Unspecified asthma, uncomplicated; Z88.8 Allergy status to other drugs, medicaments and biological substances; Z91.013 Allergy to seafood; F17.210 Nicotine dependence, cigarettes, uncomplicated

== ENCOUNTER → 2017-01-18 | Outpatient (REF) | payer OTHER ==
[~2017-01-18] MED LIST changes: +AMOX500C; +PERC5TAB12 PO
== END ==
LOC: M LAB REF 17:14
PROVIDERS: ATTEND Physician Assistant
DX: N89.8 Other specified noninflammatory disorders of vagina (principal)

== ENCOUNTER 2017-01-20 19:08 | Emergency (ER) | payer OTHER ==
[~2017-01-20] VITALS: Ht 154.9 cm; Wt 130.9 kg
[2017-01-20 19:08] VITALS: BP 186/89
[~2017-01-20 19:08] MED LIST changes: -AMOX500C
[2017-01-20] MEDS ORDERED: AMOX500C (19:21)
== END 2017-01-20 20:42 | disposition left against medical advice (07) ==
LOC: M ED 19:08
DX: Z53.29 Procedure and treatment not carried out because of patient's decision for other reasons (principal)

== ENCOUNTER → 2017-03-16 | Outpatient (REF) | payer OTHER ==
[2017-03-16 13:57] LABS: CONTROL LINE UCG INT CTR LINE PRESENT; URINE PREG TEST NEGATIVE (NEGATIVE)
[2017-03-16 13:59] LABS: AMORPHOUS SEDIMENT SMALL (NEGATIVE); APPEARANCE, URINE CLOUDY (CLEAR); BACTERIA, URINE AUTO NEGATIVE (NEGATIVE); BILIRUBIN, URINE AUTO NEGATIVE (NEGATIVE); BLOOD, URINE BLOOD NEGATIVE (NEGATIVE); COLOR, URINE YELLOW (YELLOW); GLUCOSE, URINE (UA) AUTO NEGATIVE (NEGATIVE); KETONE, URINE AUTO NEGATIVE (NEGATIVE); LEUKOCYTE ESTERASE, URINE AUTO TRACE (NEGATIVE); MUCUS, URINE SMALL (NEGATIVE); NITRITE, URINE AUTO NEGATIVE (NEGATIVE); PROTEIN, URINE AUTO NEGATIVE (NEGATIVE); RBC, URINE AUTO 5 /HPF (0-3); SPECIFIC GRAVITY URINE AUTO 1.026 (1.002-1.035); SQUAMOUS EPITHELIAL CELL UR AU 17 /HPF (0-6); UROBILINOGEN, URINE AUTO 0.2 mg/dL (0.0-2.0); WBC, URINE AUTO 13 /HPF (0-3)
== END ==
LOC: M LAB REF 12:54
DX: N39.0 Urinary tract infection, site not specified (principal)

== ENCOUNTER → 2017-03-28 | Outpatient (REF) | payer OTHER ==
[2017-03-28 19:51] LABS: AMORPHOUS SEDIMENT MODERATE (NEGATIVE); APPEARANCE, URINE TURBID (CLEAR); BACTERIA, URINE AUTO 1+ (NEGATIVE); BILIRUBIN, URINE AUTO NEGATIVE (NEGATIVE); BLOOD, URINE BLOOD NEGATIVE (NEGATIVE); COLOR, URINE YELLOW (YELLOW); GLUCOSE, URINE (UA) AUTO NEGATIVE (NEGATIVE); KETONE, URINE AUTO TRACE mg/dL (NEGATIVE); LEUKOCYTE ESTERASE, URINE AUTO 2+ (NEGATIVE); MUCUS, URINE SMALL (NEGATIVE); NITRITE, URINE AUTO NEGATIVE (NEGATIVE); PROTEIN, URINE AUTO NEGATIVE (NEGATIVE); RBC, URINE AUTO 5 /HPF (0-3); SPECIFIC GRAVITY URINE AUTO 1.033 (1.002-1.035); SQUAMOUS EPITHELIAL CELL UR AU 3 /HPF (0-6); UROBILINOGEN, URINE AUTO 0.2 mg/dL (0.0-2.0); WBC, URINE AUTO 55 /HPF (0-3)
== END ==
LOC: M SFHCPLAZ 17:19
DX: N39.0 Urinary tract infection, site not specified (principal)

== ENCOUNTER → 2017-03-30 | Outpatient (REF) | payer OTHER ==
[2017-03-30 11:19] LABS: ESTIMATED AVERAGE GLUCOSE 123 MG/DL (60-110); HEMOGLOBIN A1c 5.9 %
[2017-03-30 11:36] LABS: ALBUMIN 3.5 GM/DL (3.2-5.2); ALBUMIN/GLOBULIN RATIO 1.17 (1.00-1.93); ALKALINE PHOSPHATASE 59 U/L (45-117); ALT/SGPT 24 U/L (12-78); ANION GAP 7 MEQ/L (8-16); AST/SGOT 13 U/L (7-37); BILIRUBIN,TOTAL 0.3 MG/DL (0.2-1.0); BLOOD UREA NITROGEN 13 MG/DL (7-18); CALCIUM LEVEL 8.6 MG/DL (8.5-10.1); CARBON DIOXIDE LEVEL 27 MEQ/L (21-32); CHLORIDE LEVEL 108 MEQ/L (98-107); CREATININE FOR GFR 0.49 MG/DL (0.55-1.30); GLOMERULAR FILTRATION RATE > 60.0 (>60); GLUCOSE, FASTING 83 MG/DL (70-100); POTASSIUM SERUM 3.8 MEQ/L (3.5-5.1); SODIUM LEVEL 142 MEQ/L (136-145); TOTAL PROTEIN 6.5 GM/DL (6.4-8.2)
== END ==
LOC: M SFHCPLAZ 10:49
DX: R82.4 Acetonuria (principal); Z13.1 Encounter for screening for diabetes mellitus
CPT/HCPCS: 83036

== ENCOUNTER → 2017-04-11 | Outpatient (CLI) | payer OTHER | LOC: M RAD 12:54 | DX: N63.20 Unspecified lump in the left breast, unspecified quadrant (principal) | CPT/HCPCS: 76642 ==

== ENCOUNTER → 2017-07-13 | Outpatient (CLI) | payer OTHER ==
[2017-07-13 21:55] LABS: HCG, SERUM QUANTITATIVE < 1.0 MIU/ML
[2017-07-14 14:19] LABS: CHLAMYDIA DNA AMPLIFICATION NEGATIVE (NEGATIVE); GC DNA AMPLIFICATION NEGATIVE (NEGATIVE)
== END ==
LOC: M WUC 11:34
DX: N91.2 Amenorrhea, unspecified (principal); R30.0 Dysuria
CPT/HCPCS: 84702

== ENCOUNTER 2017-09-13 19:48 | Emergency (ER) | payer OTHER ==
[2017-09-13 21:43] LABS: BASO % 0.3 % (0.0-1.0); EOS # 0.3 10^3/uL (0.0-0.50); EOS % 2.2 % (0.0-3.0); HEMATOCRIT 37.5 % (36.0-47.0); HEMOGLOBIN 12.3 g/dl (12.0-15.5); IMMATURE GRANULOCYTE % 0.2 % (0-3.0); LYMPH % 15.9 % (24.0-44.0); MEAN CORPUSCULAR HEMOGLOBIN 30.3 pg (27.0-33.0); MEAN CORPUSCULAR HGB CONC 32.8 g/dl (32.0-36.5); MEAN CORPUSCULAR VOLUME 92.4 fl (80.0-96.0); MONO # 0.7 10^3/uL (0.0-0.8); NEUTROPHILS # 9.3 10^3/uL (1.8-7.7); NEUTROPHILS % 75.4 % (36.0-66.0); PLATELET COUNT, AUTOMATED 249 10^3/uL (150-450); RED BLOOD COUNT 4.06 10^6/uL (4.00-5.40); RED CELL DISTRIBUTION WIDTH 12.1 % (11.5-14.5); WHITE BLOOD COUNT 12.3 10^3/uL (4.0-10.0)
[2017-09-13] MEDS: IPRATROPIUM 0.5MG/ALBUTEROL 2.5MG INH SOL UD 3ML (DUONEB)(J7620) NEB (21:50)
[2017-09-13 22:00] LABS: ANION GAP 7 MEQ/L (8-16); BLOOD UREA NITROGEN 16 MG/DL (7-18); CALCIUM LEVEL 8.3 MG/DL (8.5-10.1); CARBON DIOXIDE LEVEL 27 MEQ/L (21-32); CHLORIDE LEVEL 107 MEQ/L (98-107); CK-MB VALUE MASS 1.4 NG/ML (<3.6); CPK CREATINE PHOSPHOKINASE 155 U/L (26-192); GLOMERULAR FILTRATION RATE > 60.0 (>60); GLUCOSE, FASTING 98 MG/DL (70-100); POTASSIUM SERUM 3.7 MEQ/L (3.5-5.1); SODIUM LEVEL 141 MEQ/L (136-145); TROPONIN I < 0.02 NG/ML (< 0.10)
[2017-09-13] MEDS ORDERED: ACETAMINOPHEN TAB 650MG DOSE (2X325MG) PO (22:00)
[2017-09-13] MEDS: ACETAMINOPHEN TAB 650MG DOSE (2X325MG) PO (22:15)
== END 2017-09-13 22:45 | disposition home or self-care (01) ==
LOC: M ED 19:48
DX: F41.0 Panic disorder [episodic paroxysmal anxiety] (principal); Z72.0 Tobacco use; Z88.8 Allergy status to other drugs, medicaments and biological substances; Z91.013 Allergy to seafood
CPT/HCPCS: 93005

== ENCOUNTER → 2017-12-28 | Outpatient (REF) | payer OTHER ==
[2017-12-28 18:45] LABS: APPEARANCE, URINE CLOUDY (CLEAR); BACTERIA, URINE AUTO NEGATIVE (NEGATIVE); BILIRUBIN, URINE AUTO NEGATIVE (NEGATIVE); BLOOD, URINE BLOOD NEGATIVE (NEGATIVE); COLOR, URINE YELLOW (YELLOW); GLUCOSE, URINE (UA) AUTO NEGATIVE (NEGATIVE); KETONE, URINE AUTO NEGATIVE (NEGATIVE); LEUKOCYTE ESTERASE, URINE AUTO 1+ (NEGATIVE); MUCUS, URINE MODERATE (NEGATIVE); NITRITE, URINE AUTO NEGATIVE (NEGATIVE); PROTEIN, URINE AUTO NEGATIVE (NEGATIVE); RBC, URINE AUTO 4 /HPF (0-3); SPECIFIC GRAVITY URINE AUTO 1.027 (1.002-1.035); SQUAMOUS EPITHELIAL CELL UR AU 17 /HPF (0-6); UROBILINOGEN, URINE AUTO 0.2 mg/dL (0.0-2.0); WBC, URINE AUTO 26 /HPF (0-3)
== END ==
LOC: M LAB REF 16:58
DX: N39.0 Urinary tract infection, site not specified (principal)

== ENCOUNTER → 2018-01-15 | Outpatient (REF) | payer OTHER, MEDICAID ==
[2018-01-17 13:39] LABS: CHLAMYDIA DNA AMPLIFICATION NEGATIVE (NEGATIVE); GC DNA AMPLIFICATION NEGATIVE (NEGATIVE)
== END ==
LOC: M LAB REF 13:00
DX: Z11.3 Encounter for screening for infections with a predominantly sexual mode of transmission (principal)
CPT/HCPCS: 87591

== ENCOUNTER → 2018-03-20 | Outpatient (REF) | payer OTHER, MEDICAID ==
[~2018-03-20] MED LIST changes: +AMOX500C
[2018-03-20 19:21] LABS: BACTERIA, URINE AUTO NEGATIVE (NEGATIVE); MUCUS, URINE MODERATE (NEGATIVE); RBC, URINE AUTO 3 /HPF (0-3); SQUAMOUS EPITHELIAL CELL UR AU 26 /HPF (0-6); WBC, URINE AUTO 10 /HPF (0-3)
[2018-03-20 22:30] LABS: CHLAMYDIA DNA AMPLIFICATION NEGATIVE (NEGATIVE); GC DNA AMPLIFICATION NEGATIVE (NEGATIVE)
== END ==
LOC: M LAB REF 16:32
PROVIDERS: ATTEND Physician Assistant
DX: R30.0 Dysuria (principal)

== ENCOUNTER → 2018-04-19 | Outpatient (REF) ==
--- NOTE | 2018-04-20 02:41 | REP ---
Clinical: Pain and disability. Technique: AP, lateral, bilateral oblique and sunrise views of the left knee. Findings: Early advanced tricompartmental osteoarthritic degenerative changes are appreciated. Findings include subchondral sclerosis to the tibial plateau and posterior patellar margin along with moderate osteophytosis and joint space narrowing. No acute fracture dislocation. No effusion. Impression: Moderate/Early advanced tricompartmental osteoarthritic degenerative changes. Electronically Signed by Asad Jefferson MD 04/20/2018 02:33 A
== END ==
LOC: M SMT 13:31
PROVIDERS: ATTEND Internal Medicine
DX: Z02.89 Encounter for other administrative examinations (principal)

== ENCOUNTER 2018-05-10 08:56 | Emergency (ER) | payer OTHER ==
[~2018-05-10] VITALS: Ht 154.9 cm; Wt 159.9 kg
[~2018-05-10 08:56] MED LIST changes: +PRENATAL VIT
[2018-05-10] MEDS ORDERED: ACETAMINOPHEN TAB 650MG DOSE (2X325MG) PO ONE (09:30)
[2018-05-10 10:00] LABS: BASO % 0.4 % (0.0-1.0); EOS # 0.3 10^3/uL (0.0-0.50); EOS % 3.7 % (0.0-3.0); HEMATOCRIT 40.4 % (36.0-47.0); LYMPH % 26.4 % (24.0-44.0); MEAN CORPUSCULAR HEMOGLOBIN 29.8 pg (27.0-33.0); MEAN CORPUSCULAR HGB CONC 32.2 g/dl (32.0-36.5); MEAN CORPUSCULAR VOLUME 92.7 fl (80.0-96.0); MONO # 0.5 10^3/uL (0.0-0.8); MONO % 6.5 % (0.0-5.0); NEUTROPHILS # 4.7 10^3/uL (1.8-7.7); NEUTROPHILS % 62.6 % (36.0-66.0); PLATELET COUNT, AUTOMATED 260 10^3/uL (150-450); RED BLOOD COUNT 4.36 10^6/uL (4.00-5.40); WHITE BLOOD COUNT 7.5 10^3/uL (4.0-10.0)
[2018-05-10 10:43] LABS: BLOOD UREA NITROGEN 10 MG/DL (7-18); CALCIUM LEVEL 8.6 MG/DL (8.5-10.1); CARBON DIOXIDE LEVEL 24 MEQ/L (21-32); CHLORIDE LEVEL 112 MEQ/L (98-107); CREATININE FOR GFR 0.61 MG/DL (0.55-1.30); GLOMERULAR FILTRATION RATE > 60.0 (>60); GLUCOSE, FASTING 112 MG/DL (70-100); HCG, SERUM QUANTITATIVE 1706 MIU/ML; POTASSIUM SERUM 3.7 MEQ/L (3.5-5.1); SODIUM LEVEL 143 MEQ/L (136-145)
--- NOTE | 2018-05-10 11:14 | REP ---
FIRST TRIMESTER ULTRASOUND: Real-time sonographic evaluation of the gravid uterus performed utilizing transabdominal and endovaginal technique. There appears to be an intrauterine gestational sac. Mean sac diameter is 7 mm corresponding to the estimated gestational age of 5 weeks 3 days. Uterine length is 11.4. No internal contents are seen within the intrauterine gestational sac. Ovaries are normal in size and echotexture, right ovary measuring 2.7 x 2.4 x 2.1 cm and left ovary 4.1 x 3.9 x 3.2 cm. There is no adnexa mass, torsion or free fluid. Findings may represent a very early intrauterine , possibly missed or ectopic . Suggest correlation with serial quantitative beta hCG values and followup ultrasound. Electronically Signed by Michel Escobar MD 05/10/2018 11:19 A
[2018-05-10 11:15] VITALS: BP 144/82
[2018-05-10] MEDS ORDERED: MACR100C43 PO ×2 (11:25→11:27)
== END 2018-05-10 11:34 | disposition home or self-care (01) ==
LOC: M ED 08:56
DX: O23.31 Infections of other parts of urinary tract in pregnancy, first trimester (principal); Z3A.01 Less than 8 weeks gestation of pregnancy; O99.511 Diseases of the respiratory system complicating pregnancy, first trimester; J45.909 Unspecified asthma, uncomplicated; O99.341 Other mental disorders complicating pregnancy, first trimester; F41.9 Anxiety disorder, unspecified; O99.211 Obesity complicating pregnancy, first trimester; Z88.8 Allergy status to other drugs, medicaments and biological substances; Z91.013 Allergy to seafood; Z91.018 Allergy to other foods; O99.331 Smoking (tobacco) complicating pregnancy, first trimester; F17.210 Nicotine dependence, cigarettes, uncomplicated

== ENCOUNTER → 2018-05-17 | Outpatient (CLI) | payer OTHER, MEDICAID ==
[~2018-05-17] MED LIST changes: +MACR100C43 PO
== END ==
LOC: M SMT 14:44
PROVIDERS: ATTEND Advanced Practice Midwife
DX: O26.851 Spotting complicating pregnancy, first trimester (principal); Z3A.00 Weeks of gestation of pregnancy not specified

== ENCOUNTER → 2018-06-08 | Outpatient (REF) | payer OTHER, MEDICAID | LOC: M LAB REF 17:45 | PROVIDERS: ATTEND Obstetrics & Gynecology | DX: Z34.81 Encounter for supervision of other normal pregnancy, first trimester (principal) ==

== ENCOUNTER → 2018-06-14 | Outpatient (CLI) | payer OTHER, MEDICAID | LOC: M SMT 11:29 | PROVIDERS: ATTEND Specialist | DX: Z34.81 Encounter for supervision of other normal pregnancy, first trimester (principal); Z3A.00 Weeks of gestation of pregnancy not specified ==

== ENCOUNTER 2018-07-17 11:12 | Emergency (ER) | payer MEDICAID, OTHER ==
[~2018-07-17] VITALS: Ht 157.5 cm; Wt 163.3 kg
[2018-07-17] MEDS ORDERED: NS 1,000 ML IV ONE (12:15)
[2018-07-17 12:43] LABS: BASO % 0.4 % (0.0-1.0); EOS # 0.3 10^3/uL (0.0-0.50); EOS % 2.9 % (0.0-3.0); HEMATOCRIT 34.2 % (36.0-47.0); HEMOGLOBIN 11.6 g/dl (12.0-15.5); LYMPH # 2.1 10^3/uL (1.5-4.5); LYMPH % 20.4 % (24.0-44.0); MEAN CORPUSCULAR HEMOGLOBIN 31.5 pg (27.0-33.0); MEAN CORPUSCULAR HGB CONC 33.9 g/dl (32.0-36.5); MEAN CORPUSCULAR VOLUME 92.9 fl (80.0-96.0); MONO # 0.7 10^3/uL (0.0-0.8); MONO % 6.8 % (0.0-5.0); NEUTROPHILS # 7.1 10^3/uL (1.8-7.7); NEUTROPHILS % 69.2 % (36.0-66.0); PLATELET COUNT, AUTOMATED 219 10^3/uL (150-450); RED BLOOD COUNT 3.68 10^6/uL (4.00-5.40); WHITE BLOOD COUNT 10.2 10^3/uL (4.0-10.0)
[2018-07-17 12:52] LABS: INR 1.01; PROTHROMBIN TIME 13.4 SECONDS (12.1-14.4)
[2018-07-17 12:53] LABS: PARTIAL THROMBOPLASTIN TIME 26.5 SECONDS (25.4-37.6)
[2018-07-17 13:26] LABS: ALBUMIN 2.9 GM/DL (3.2-5.2); ALT/SGPT 32 U/L (12-78); BILIRUBIN,DIRECT < 0.1 MG/DL (0.0-0.2); BILIRUBIN,TOTAL 0.2 MG/DL (0.2-1.0); BLOOD UREA NITROGEN 6 MG/DL (7-18); CALCIUM LEVEL 8.8 MG/DL (8.5-10.1); CARBON DIOXIDE LEVEL 23 MEQ/L (21-32); CHLORIDE LEVEL 109 MEQ/L (98-107); CREATININE FOR GFR 0.44 MG/DL (0.55-1.30); GLOMERULAR FILTRATION RATE > 60.0 (>60); GLUCOSE, FASTING 118 MG/DL (70-100); HCG, SERUM QUANTITATIVE 37525 MIU/ML; POTASSIUM SERUM 3.8 MEQ/L (3.5-5.1); SODIUM LEVEL 140 MEQ/L (136-145)
--- NOTE | 2018-07-17 14:21 | REP ---
OB ULTRASOUND: Real-time sonographic evaluation of the gravid uterus is performed. There is a single living intrauterine gestation. Estimated gestational age is 14 weeks 5 days, EDC 01/10/2019. Today's measurements indicate appropriate growth. BPD 29 mm = 15 weeks 2 days, 71st percentile HC 113 mm = 15 weeks 4 days, 80th percentile AC 91 mm = 15 weeks 2 days, 66th percentile Femur length 17 mm = 15 weeks 0 days, 61st percentile HC/AC ratio 1.24 within normal range. Estimated weight 118 grams, 64th percentile. heart rate 157 beats per minute. position is transverse with head toward the maternal left side. Placenta posterior with no abruption. Amniotic fluid appears within normal limits for gestational age. Electronically Signed by Michel Escobar MD 07/18/2018 12:00 P
[2018-07-17 14:23] VITALS: BP 135/57
[2018-07-17] MEDS ORDERED: KEFL500C17 PO (14:32)
== END 2018-07-17 14:40 | disposition home or self-care (01) ==
LOC: M ED 11:12
DX: O23.42 Unspecified infection of urinary tract in pregnancy, second trimester (principal); Z3A.15 15 weeks gestation of pregnancy; O99.512 Diseases of the respiratory system complicating pregnancy, second trimester; O99.332 Smoking (tobacco) complicating pregnancy, second trimester; Z79.899 Other long term (current) drug therapy; Z91.013 Allergy to seafood; Z91.018 Allergy to other foods; Z88.8 Allergy status to other drugs, medicaments and biological substances

== ENCOUNTER → 2018-07-18 | Outpatient (CLI) | payer OTHER ==
[~2018-07-18] MED LIST changes: +KEFL500C17 PO
[2018-07-18 16:10] LABS: HEMATOCRIT 33.9 % (36.0-47.0); HEMOGLOBIN 11.3 g/dl (12.0-15.5); MEAN CORPUSCULAR HEMOGLOBIN 30.5 pg (27.0-33.0); MEAN CORPUSCULAR HGB CONC 33.3 g/dl (32.0-36.5); MEAN CORPUSCULAR VOLUME 91.4 fl (80.0-96.0); PLATELET COUNT, AUTOMATED 193 10^3/uL (150-450); RED BLOOD COUNT 3.71 10^6/uL (4.00-5.40); WHITE BLOOD COUNT 9.2 10^3/uL (4.0-10.0)
[2018-07-18 16:13] LABS: ALT/SGPT 31 U/L (12-78); BILIRUBIN,TOTAL 0.1 MG/DL (0.2-1.0); CREATININE FOR GFR 0.37 MG/DL (0.55-1.30); GLOMERULAR FILTRATION RATE > 60.0 (>60); GLUCOSE CHALLENGE TEST 1 HOUR 127 MG/DL (LESS THAN 140); LDH LACTATE DEHYDROGENASE 147 U/L (84-246)
== END ==
LOC: M WUC 10:43
PROVIDERS: ATTEND Obstetrics & Gynecology
DX: O10.012 Pre-existing essential hypertension complicating pregnancy, second trimester (principal); O99.212 Obesity complicating pregnancy, second trimester; E66.9 Obesity, unspecified

== ENCOUNTER → 2018-08-03 | Outpatient (REF) | payer OTHER ==
[2018-08-03 13:36] LABS: APPEARANCE, URINE HAZY (CLEAR); BACTERIA, URINE AUTO 1+ (NEGATIVE); BILIRUBIN, URINE AUTO NEGATIVE (NEGATIVE); BLOOD, URINE BLOOD NEGATIVE (NEGATIVE); COLOR, URINE YELLOW (YELLOW); GLUCOSE, URINE (UA) AUTO NEGATIVE (NEGATIVE); KETONE, URINE AUTO NEGATIVE (NEGATIVE); LEUKOCYTE ESTERASE, URINE AUTO 2+ (NEGATIVE); MUCUS, URINE SMALL (NEGATIVE); NITRITE, URINE AUTO NEGATIVE (NEGATIVE); PROTEIN, URINE AUTO NEGATIVE (NEGATIVE); RBC, URINE AUTO 9 /HPF (0-3); SPECIFIC GRAVITY URINE AUTO 1.025 (1.002-1.035); SQUAMOUS EPITHELIAL CELL UR AU 10 /HPF (0-6); UROBILINOGEN, URINE AUTO 0.2 mg/dL (0.0-2.0); WBC, URINE AUTO 18 /HPF (0-3)
== END ==
LOC: M LAB REF 12:23
PROVIDERS: ATTEND Physician Assistant
DX: N39.0 Urinary tract infection, site not specified (principal)

== ENCOUNTER 2018-08-05 20:26 | Emergency (ER) | payer OTHER ==
[~2018-08-05] VITALS: Ht 154.9 cm; Wt 162.7 kg
[2018-08-05 22:05] LABS: BASO % 0.2 % (0.0-1.0); EOS # 0.4 10^3/uL (0.0-0.50); HEMATOCRIT 31.1 % (36.0-47.0); HEMOGLOBIN 10.7 g/dl (12.0-15.5); LYMPH # 2.5 10^3/uL (1.5-4.5); LYMPH % 21.6 % (24.0-44.0); MEAN CORPUSCULAR HEMOGLOBIN 31.9 pg (27.0-33.0); MEAN CORPUSCULAR HGB CONC 34.4 g/dl (32.0-36.5); MEAN CORPUSCULAR VOLUME 92.8 fl (80.0-96.0); MONO # 0.9 10^3/uL (0.0-0.8); MONO % 7.8 % (0.0-5.0); NEUTROPHILS # 7.8 10^3/uL (1.8-7.7); NEUTROPHILS % 67.1 % (36.0-66.0); PLATELET COUNT, AUTOMATED 213 10^3/uL (150-450); RED BLOOD COUNT 3.35 10^6/uL (4.00-5.40); WHITE BLOOD COUNT 11.6 10^3/uL (4.0-10.0)
[2018-08-05 22:11] LABS: AMORPHOUS SEDIMENT SMALL (NEGATIVE); APPEARANCE, URINE CLOUDY (CLEAR); BACTERIA, URINE AUTO 2+ (NEGATIVE); BILIRUBIN, URINE AUTO NEGATIVE (NEGATIVE); BLOOD, URINE BLOOD NEGATIVE (NEGATIVE); COLOR, URINE YELLOW (YELLOW); GLUCOSE, URINE (UA) AUTO NEGATIVE (NEGATIVE); KETONE, URINE AUTO NEGATIVE (NEGATIVE); LEUKOCYTE ESTERASE, URINE AUTO 2+ (NEGATIVE); MUCUS, URINE SMALL (NEGATIVE); NITRITE, URINE AUTO NEGATIVE (NEGATIVE); PROTEIN, URINE AUTO NEGATIVE (NEGATIVE); RBC, URINE AUTO 3 /HPF (0-3); SPECIFIC GRAVITY URINE AUTO 1.014 (1.002-1.035); SQUAMOUS EPITHELIAL CELL UR AU 12 /HPF (0-6); UROBILINOGEN, URINE AUTO 0.2 mg/dL (0.0-2.0); WBC, URINE AUTO 31 /HPF (0-3)
[2018-08-05 22:26] LABS: ALBUMIN 2.6 GM/DL (3.2-5.2); ALT/SGPT 32 U/L (12-78); BILIRUBIN,DIRECT < 0.1 MG/DL (0.0-0.2); BILIRUBIN,TOTAL 0.2 MG/DL (0.2-1.0); BLOOD UREA NITROGEN 8 MG/DL (7-18); CALCIUM LEVEL 8.5 MG/DL (8.5-10.1); CARBON DIOXIDE LEVEL 25 MEQ/L (21-32); CHLORIDE LEVEL 110 MEQ/L (98-107); CREATININE FOR GFR 0.36 MG/DL (0.55-1.30); GLOMERULAR FILTRATION RATE > 60.0 (>60); GLUCOSE, FASTING 107 MG/DL (70-100); POTASSIUM SERUM 3.5 MEQ/L (3.5-5.1); SODIUM LEVEL 140 MEQ/L (136-145); TOTAL PROTEIN 5.5 GM/DL (6.4-8.2)
[2018-08-05 22:30] VITALS: BP 111/63
== END 2018-08-05 22:59 | disposition home or self-care (01) ==
LOC: M ED 20:26
DX: R03.0 Elevated blood-pressure reading, without diagnosis of hypertension (principal); Z3A.18 18 weeks gestation of pregnancy; J45.909 Unspecified asthma, uncomplicated; Z91.013 Allergy to seafood; Z91.018 Allergy to other foods; Z88.8 Allergy status to other drugs, medicaments and biological substances

== ENCOUNTER → 2018-08-15 | Outpatient (CLI) | payer OTHER ==
[~2018-08-15] MED LIST changes: +ACET-897 PO; +ALBU8.5H INH; +CEPH500C PO; +DIFL150T PO; +OXYC1TAB23 PO; +PREN200C PO; +TUMS500C PO
--- NOTE | 2018-08-15 12:34 | REP ---
Clinical: Anatomical evaluation. Comparison: 07/17/2018 . Findings: Examination demonstrates a single live intrauterine in transverse (head to maternal left) presentation. motion is identified by technologist. Placenta is noted posterior and grade zero without evidence for placenta previa or abruption. Amniotic fluid volume is normal. Cervix measures 5.8 cm in length and appears closed. No evidence for nuchal cord. Gestational age by LMP 18 weeks 6 days with RASHAD 01/10/2019 . Gestational age by current measurements 18 weeks 5 days with RASHAD 01/11/2019 . FHR equals 150 beats per minute. BPD 3.8 cm 17 weeks 4 days HC 15.4 cm 18 weeks 3 days AC 13.9 cm 19 weeks 2 days FL 3.2 cm 19 weeks 6 days HC/AC ratio 1.11 Estimated weight 286 grams ( 63rd percentile). Anatomical assessment demonstrates normal structures including cranium, cavum, lungs, diaphragm, stomach, cord insertion/three-vessel cord, bladder, and extremities. Limited evaluation of the cord plexus, posterior fossa, facial features, four-chamber heart/ventricular outflow tracts, kidneys, and spine. Impression: Single live intrauterine in transverse lie demonstrating appropriate interval growth. Anatomical limitations as noted above may warrant reevaluation and follow-up. Electronically Signed by Asad Jefferson MD 08/15/2018 12:26 P
== END ==
LOC: M RAD 10:00
PROVIDERS: ATTEND Specialist
DX: O32.2XX0 Maternal care for transverse and oblique lie, not applicable or unspecified (principal); Z36.89 Encounter for other specified antenatal screening; Z3A.18 18 weeks gestation of pregnancy

== ENCOUNTER 2018-08-20 23:46 | Outpatient (CLI) | payer OTHER ==
[~2018-08-20] VITALS: Ht 157.5 cm; Wt 165.9 kg
[~2018-08-20 23:46] MED LIST changes: -ACET-897 PO; -ALBU8.5H INH; -CEPH500C PO; -DIFL150T PO; -OXYC1TAB23 PO; -PREN200C PO; -TUMS500C PO
[2018-08-21 00:02] VITALS: BP 124/58
== END 2018-08-21 00:30 | disposition home or self-care (01) ==
LOC: M LDO 23:46
PROVIDERS: ATTEND Specialist
DX: O36.8120 Decreased fetal movements, second trimester, not applicable or unspecified (principal); O26.892 Other specified pregnancy related conditions, second trimester; R10.30 Lower abdominal pain, unspecified; Z3A.20 20 weeks gestation of pregnancy

== ENCOUNTER → 2018-09-07 | Outpatient (CLI) | payer OTHER ==
--- NOTE | 2018-09-07 07:26 | REP ---
Clinical: Anatomical evaluation. Comparison: 08/15/2018 . Findings: Examination demonstrates a single live intrauterine in cephalic presentation. motion is identified by technologist. Placenta is noted posterior and grade 0 without evidence for placenta previa or abruption. Amniotic fluid volume is normal. Cervix measures 4.2 cm in length and appears closed. No evidence for nuchal cord. Gestational age by LMP 22 weeks 1 day with RASHAD 01/10/1990 . Gestational age by current measurements 22 weeks 3 days with RASHAD 01/08/1990 . FHR equals 145 beats per minute. Estimated weight 507 grams ( 58th percentile). Anatomical assessment demonstrates normal structures including cranium, choroid plexus, cavum, lungs, four-chamber heart/ventricular outflow tracts, diaphragm, stomach, cord insertion/three-vessel cord, kidneys/bladder, and spine. Continued limited evaluation of the cerebellum/posterior fossa and facial features again noted due to positioning. Impression: 1. Single live intrauterine in cephalic / oblique positioning limits anatomical evaluation. No gross abnormalities are identified. Continued limited evaluation of the posterior fossa and facial features noted. Electronically Signed by Asad Jefferson MD 09/07/2018 07:17 A
== END ==
LOC: M RAD 06:10
PROVIDERS: ATTEND Specialist
DX: Z36.9 Encounter for antenatal screening, unspecified (principal); Z3A.22 22 weeks gestation of pregnancy

== ENCOUNTER 2018-10-11 16:56 | Outpatient (CLI) | payer OTHER ==
[2018-10-11 17:57] VITALS: BP 157/83
[2018-10-11 18:36] LABS: APPEARANCE, URINE TURBID (CLEAR); BACTERIA, URINE AUTO 2+ (NEGATIVE); BILIRUBIN, URINE AUTO NEGATIVE (NEGATIVE); BLOOD, URINE BLOOD 1+ (NEGATIVE); COLOR, URINE YELLOW (YELLOW); GLUCOSE, URINE (UA) AUTO NEGATIVE (NEGATIVE); KETONE, URINE AUTO NEGATIVE (NEGATIVE); LEUKOCYTE ESTERASE, URINE AUTO 2+ (NEGATIVE); MUCUS, URINE MODERATE (NEGATIVE); NITRITE, URINE AUTO NEGATIVE (NEGATIVE); PROTEIN, URINE AUTO NEGATIVE (NEGATIVE); RBC, URINE AUTO 30 /HPF (0-3); SPECIFIC GRAVITY URINE AUTO 1.018 (1.002-1.035); SQUAMOUS EPITHELIAL CELL UR AU 4 /HPF (0-6); UROBILINOGEN, URINE AUTO 0.2 mg/dL (0.0-2.0); WBC, URINE AUTO 48 /HPF (0-3)
[2018-10-11] MEDS ORDERED: DIFL150T PO (18:58)
[2018-10-11] MEDS ORDERED: CEPH500C PO (18:58)
[2018-10-11 19:13] VITALS: BP 131/74
[2018-10-11] MEDS ORDERED: CEPHALEXIN 500 MG CAP PO ONE (20:00)
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
== END 2018-10-11 19:00 | disposition home or self-care (01) ==
LOC: M LDO 16:56
PROVIDERS: ATTEND Advanced Practice Midwife
DX: O26.893 Other specified pregnancy related conditions, third trimester (principal); R10.9 Unspecified abdominal pain; M54.5 Low back pain; O23.43 Unspecified infection of urinary tract in pregnancy, third trimester; N39.0 Urinary tract infection, site not specified; O47.03 False labor before 37 completed weeks of gestation, third trimester; Z3A.27 27 weeks gestation of pregnancy

== ENCOUNTER → 2018-10-25 | Outpatient (CLI) | payer OTHER ==
[~2018-10-25] MED LIST changes: +CEPH500C PO; +DIFL150T PO
[2018-10-25 18:42] LABS: BASO % 0.2 % (0.0-1.0); EOS # 0.3 10^3/uL (0.0-0.5); EOS % 2.5 % (0.0-3.0); LYMPH % 17.1 % (24.0-44.0); MEAN CORPUSCULAR HEMOGLOBIN 33.6 pg (27.0-33.0); MEAN CORPUSCULAR HGB CONC 34.4 g/dl (32.0-36.5); MEAN CORPUSCULAR VOLUME 97.9 fl (80.0-96.0); MONO # 0.8 10^3/uL (0.0-0.8); MONO % 6.6 % (0.0-5.0); NEUTROPHILS # 8.7 10^3/uL (1.5-8.5); NEUTROPHILS % 73.1 % (36.0-66.0); PLATELET COUNT, AUTOMATED 231 10^3/uL (150-450); RED BLOOD COUNT 3.27 10^6/uL (4.00-5.40); WHITE BLOOD COUNT 11.9 10^3/uL (4.0-10.0)
[2018-10-25 18:50] LABS: ALBUMIN 2.5 GM/DL (3.2-5.2); ALT/SGPT 12 U/L (12-78); AMYLASE 35 U/L (25-115); BILIRUBIN,DIRECT < 0.1 MG/DL (0.0-0.2); BILIRUBIN,TOTAL 0.2 MG/DL (0.2-1.0); LIPASE 61 U/L (73-393); TOTAL PROTEIN 5.6 GM/DL (6.4-8.2)
== END ==
LOC: M SMT 13:26
PROVIDERS: ATTEND Advanced Practice Midwife
DX: O99.212 Obesity complicating pregnancy, second trimester (principal); O26.893 Other specified pregnancy related conditions, third trimester

== ENCOUNTER → 2018-10-30 | Outpatient (REF) | payer OTHER | LOC: M LAB REF 17:30 | PROVIDERS: ATTEND Advanced Practice Midwife | DX: Z34.83 Encounter for supervision of other normal pregnancy, third trimester (principal) ==

== ENCOUNTER → 2018-11-01 | Outpatient (CLI) | payer OTHER, MEDICAID ==
[~2018-11-01] MED LIST changes: +ACET-897 PO; +ALBU8.5H INH; +OXYC1TAB23 PO; +PREN200C PO; +TUMS500C PO
== END ==
LOC: M LAB 06:55
PROVIDERS: ATTEND Advanced Practice Midwife
DX: O99.212 Obesity complicating pregnancy, second trimester (principal); E66.9 Obesity, unspecified

== ENCOUNTER 2018-11-16 16:32 | Outpatient (CLI) | payer MEDICAID, OTHER ==
[~2018-11-16] VITALS: Ht 154.9 cm; Wt 168.0 kg
[~2018-11-16 16:32] MED LIST changes: -ACET-897 PO; -ALBU8.5H INH; -OXYC1TAB23 PO; -PREN200C PO; -TUMS500C PO
[2018-11-16 16:51] VITALS: BP 130/73
[2018-11-16] MEDS ORDERED: ACETAMINOPHEN 500 MG TAB PO ONE (17:30)
[2018-11-16 17:52] VITALS: BP 185/95
[2018-11-16 17:53] VITALS: BP 183/94
[2018-11-16 17:57] VITALS: BP 138/64
== END 2018-11-16 18:04 | disposition home or self-care (01) ==
LOC: M LDO 16:32
PROVIDERS: ATTEND Specialist
DX: O99.89 Other specified diseases and conditions complicating pregnancy, childbirth and the puerperium (principal); M54.5 Low back pain; Z3A.32 32 weeks gestation of pregnancy

== ENCOUNTER 2018-11-25 16:49 | Outpatient (CLI) | payer OTHER ==
[~2018-11-25] VITALS: Ht 154.9 cm; Wt 168.1 kg
[2018-11-25 17:08] VITALS: BP 135/73
[2018-11-25 18:02] LABS: AMORPHOUS SEDIMENT SMALL (NEGATIVE); APPEARANCE, URINE CLOUDY (CLEAR); BACTERIA, URINE AUTO 1+ (NEGATIVE); BILIRUBIN, URINE AUTO NEGATIVE (NEGATIVE); BLOOD, URINE BLOOD NEGATIVE (NEGATIVE); COLOR, URINE YELLOW (YELLOW); GLUCOSE, URINE (UA) AUTO NEGATIVE (NEGATIVE); KETONE, URINE AUTO NEGATIVE (NEGATIVE); LEUKOCYTE ESTERASE, URINE AUTO 1+ (NEGATIVE); MUCUS, URINE SMALL (NEGATIVE); NITRITE, URINE AUTO NEGATIVE (NEGATIVE); PROTEIN, URINE AUTO NEGATIVE (NEGATIVE); RBC, URINE AUTO 7 /HPF (0-3); SQUAMOUS EPITHELIAL CELL UR AU 3 /HPF (0-6); UROBILINOGEN, URINE AUTO 0.2 mg/dL (0.0-2.0); WBC, URINE AUTO 34 /HPF (0-3)
== END 2018-11-25 18:33 | disposition home or self-care (01) ==
LOC: M LDO 16:49
PROVIDERS: ATTEND Obstetrics & Gynecology
DX: O26.893 Other specified pregnancy related conditions, third trimester (principal); R10.2 Pelvic and perineal pain; O99.89 Other specified diseases and conditions complicating pregnancy, childbirth and the puerperium; N94.9 Unspecified condition associated with female genital organs and menstrual cycle; Z3A.33 33 weeks gestation of pregnancy

== ENCOUNTER → 2018-12-01 | Outpatient (CLI) | payer OTHER ==
[~2018-12-01] MED LIST changes: +ACET-897 PO; +ALBU8.5H INH; +PREN200C PO; +TUMS500C PO
--- NOTE | 2018-12-02 11:11 | ECHO ---
DATE OF PROCEDURE: 12/01/2018 REFERRING PHYSICIAN: Dr. Andreas De La Rosa INDICATION: Screening for cardiovascular disorder. The patient measures 154 cm and weighs 167 kg. She is currently in 35th week of . DIMENSIONS: IVS 1.2 LV 5.2 LVPW 1.1 LA 3.2 Aorta 2.6 Left atrial volume index 21 mL per meter square FINDINGS: The study is of fair technical quality corresponding to patient's body habitus. Left ventricle is normal size and systolic function, estimated left ventricular ejection fraction approximately 60%. Computer calculated LVEF 54%, which seems to me a little pessimistic. Right ventricle was relatively poorly seen but appears normal. Both atria appear normal. Aortic, mitral and tricuspid valves appear normal. Pulmonic valve was not well seen. No pericardial effusion is noted. Inferior vena cava is relatively small-caliber corresponding to likely normal CVP. Aortic root and aortic arch appear normal. Abdominal aorta was not well visualized. Doppler interrogation reveals no aortic stenosis or insufficiency. Same applies for mitral and tricuspid valves. Mitral inflow pattern and tissue Doppler imaging of mitral annulus revealed normal diastolic function. CONCLUSION: 1. Study is of fair technical quality. 2. Normal LV size, systolic and diastolic function. 3. No significant valvular disease. 4. Likely normal central venous pressure. 5. Unable to estimate pulmonary artery pressure under COMMENT SBE prophylaxis is not recommended. Relatively normal echocardiogram accounting for limitations of the study. MTDD
== END ==
LOC: M CARPUL 09:11
PROVIDERS: ATTEND Obstetrics & Gynecology
DX: Z13.6 Encounter for screening for cardiovascular disorders (principal); E66.9 Obesity, unspecified

== ENCOUNTER → 2018-12-06 | Outpatient (CLI) | payer OTHER ==
--- NOTE | 2018-12-06 18:58 | REP ---
Clinical: Growth evaluation. Comparison: 09/07/2018 . Findings: Examination demonstrates a single live intrauterine in cephalic presentation. motion is identified by technologist. Placenta is noted posterior and grade I without evidence for placenta previa or abruption. Amniotic fluid volume is normal. Cervix appears closed. No evidence for nuchal cord. Gestational age by LMP 35 weeks 0 days with RASHAD 01/10/2019 . Gestational age by current measurements 35 weeks 3-day with RASHAD 01/07/2019 . FHR equals 158 beats per minute. BPD 8.5 cm 34 weeks 2 days HC 32.5 cm 36 weeks 5-day AC 31.3 cm 35 weeks 2 days FL 6.9 cm 35 weeks 3 days HL 6.2 cm 35 weeks 5 days HC/AC ratio 1.04 Estimated weight 2656 grams ( 54th percentile). Biophysical profile score: 8/8 Amniotic fluid index: 13.1 cm Umbilical cord SD ratio: 1.97 Impression: 1. Single live advanced gestation in cephalic presentation demonstrating appropriate interval growth. 2. Biophysical profile score and amniotic fluid volume are normal. Electronically Signed by Asad Jefferson MD 12/06/2018 06:49 P
== END ==
LOC: M RAD 14:13
PROVIDERS: ATTEND Advanced Practice Midwife
DX: O10.013 Pre-existing essential hypertension complicating pregnancy, third trimester (principal); Z3A.35 35 weeks gestation of pregnancy

== ENCOUNTER → 2018-12-13 | Outpatient (REF) | payer OTHER | LOC: M LAB REF 16:49 | PROVIDERS: ATTEND Specialist | DX: O10.013 Pre-existing essential hypertension complicating pregnancy, third trimester (principal); Z36.85 Encounter for antenatal screening for Streptococcus B; Z3A.00 Weeks of gestation of pregnancy not specified ==

== ENCOUNTER → 2018-12-13 | Outpatient (CLI) | payer OTHER ==
--- NOTE | 2018-12-13 12:48 | REP ---
Clinical: Gestational diabetes. well-being. Comparison: 12/06/2018 . Findings: Examination demonstrates a single live intrauterine in cephalic presentation. motion is identified by technologist. Placenta is noted posterior/fundal and grade I I without evidence for placenta previa or abruption. Amniotic fluid volume is normal. No evidence for nuchal cord. Gestational age by LMP 36 weeks 0 days with RASHAD 01/10/2019 . FHR equals 139 beats per minute. Biophysical profile score: 8/8 Amniotic fluid index: 19.5 cm (7.7 - 24.9) Umbilical cord SD ratio: 2.30 (2.00 - 3.00). Impression: Single live advanced gestation in cephalic presentation. Biophysical profile score and amniotic fluid volume are normal. Electronically Signed by Asad Jefferson MD 12/13/2018 12:39 P
== END ==
LOC: M RAD 12:12
PROVIDERS: ATTEND Advanced Practice Midwife
DX: O10.013 Pre-existing essential hypertension complicating pregnancy, third trimester (principal)

== ENCOUNTER 2018-12-20 05:31 | Inpatient (IN) | payer OTHER ==
[~2018-12-20] VITALS: Ht 154.9 cm; Wt 168.5 kg
[2018-12-20] VITALS (7 sets, daily range): BP systolic 112–141; BP diastolic 53–82
[2018-12-20] MEDS ORDERED: ceFAZolin SOD 2 GM in IV 1 EA IV ONE (06:15)
[2018-12-20] MEDS ORDERED: LR 800 ML IV ONE (06:15)
[2018-12-20] MEDS ORDERED: LR 1,000 ML IV SCH ×2 (06:15→09:56)
[2018-12-20] MEDS ORDERED: BICITRA 30ML SOLN UDC PO ONE (06:15)
[2018-12-20 06:25] LABS: HEMATOCRIT 34.8 % (36.0-47.0); HEMOGLOBIN 11.8 g/dl (12.0-15.5); MEAN CORPUSCULAR HEMOGLOBIN 32.7 pg (27.0-33.0); MEAN CORPUSCULAR HGB CONC 33.9 g/dl (32.0-36.5); MEAN CORPUSCULAR VOLUME 96.4 fl (80.0-96.0); PLATELET COUNT, AUTOMATED 275 10^3/uL (150-450); RED BLOOD COUNT 3.61 10^6/uL (4.00-5.40); WHITE BLOOD COUNT 13.4 10^3/uL (4.0-10.0)
[2018-12-20] MEDS ORDERED: ceFAZolin 1GM INJ (J0690 PER 500MG) As Ordered ONE (06:55)
[2018-12-20] MEDS ORDERED: OXYTOCIN INJ 10 UNITS/ML VIAL (J2590) As Ordered ONE (07:20)
[2018-12-20] MEDS ORDERED: ONDANSETRON 4MG/2ML VIAL (J2405) As Ordered ONE (07:20)
[2018-12-20] MEDS ORDERED: fentaNYL 100 MCG/2 ML INJECTION (J3010) As Ordered ONE (07:42)
[2018-12-20] MEDS ORDERED: MORPHINE PRES-FREE INJ 10 MG/10 ML VIAL (J2274) As Ordered ONE (07:58)
[2018-12-20] MEDS ORDERED: PHENYLephrine HCL 500 MCG/5 ML (100MCG/ML) SYRINGE (J2370) As Ordered ONE (08:30)
[2018-12-20] MEDS: PRENATAL VITAMINS CHEWABLE TABLET PO SCH (09:00)
[2018-12-20] MEDS ORDERED: ePHEDrine SULFATE 25 MG/5 ML(5MG/ML) SYRINGE As Ordered ONE (09:31)
[2018-12-20] MEDS ORDERED: KETOROLAC 60 MG/2 ML VIAL (J1885) As Ordered ONE (09:31)
[2018-12-20] MEDS ORDERED: OXYTOCIN DRIP 30 UNITS in IV 1 EA IV SCH (09:56)
[2018-12-20] MEDS ORDERED: NALOXONE INJ 0.4 MG/1 ML VIAL (J2310) IV PRN ×2 (10:00)
[2018-12-20] MEDS ORDERED: MEASLES,MUMPS,RUBELLA VACCINE INJ (MMR-II) (90707) SC SCH (10:00)
[2018-12-20] MEDS ORDERED: KETOROLAC 30 MG/ML VIAL (J1885) IV PRN (10:00)
[2018-12-20] MEDS ORDERED: METOCLOPRAMIDE INJ 10MG/2ML VIAL (J2765) IV PRN (10:00)
[2018-12-20] MEDS ORDERED: ONDANSETRON 4MG/2ML VIAL (J2405) IV PRN ×3 (10:00)
[2018-12-20] MEDS ORDERED: DOCUSATE SODIUM 100 MG CAP PO PRN (10:00)
[2018-12-20] MEDS ORDERED: fentaNYL 100 MCG/2 ML INJECTION (J3010) IV PRN (10:00)
[2018-12-20] MEDS ORDERED: PERCOCET 5MG/325MG TAB PO PRN (10:00)
[2018-12-20] MEDS ORDERED: NALBUPHINE HCL 10 MG/ML AMP (J2300) IV PRN (10:00)
[2018-12-20] MEDS ORDERED: diphenhydrAMINE INJ 50MG/ML VIAL (J1200) IV PRN (10:00)
[2018-12-20] MEDS ORDERED: RHOGAM 300 MCG (1500 IU) INJ (J2790) IM SCH (10:00)
[2018-12-20] MEDS ORDERED: NORCO, ANEXSIA 5/325MG TABLET (HYDROcodone/ACETAMINOPHEN) As Ordered ONE (10:14)
--- NOTE | 2018-12-20 10:22 | RO ---
DATE OF OPERATION: 12/20/2018 PREOPERATIVE DIAGNOSES: 37 weeks, chronic hypertension, gestational diabetes, morbid obesity, prior (C) section times three. POSTOPERATIVE DIAGNOSES: 37 weeks, chronic hypertension, gestational diabetes, morbid obesity, prior (C) section times three. PROCEDURE: Repeat low transverse section. SURGEON: Willis Horner MD RURAL CARRIER ASSOCIATE: Andreas De La Rosa DO ANESTHESIA: Spinal. ESTIMATED BLOOD LOSS: 500 mL. FINDINGS: 8-pound 9-ounce female , scores 8 and 9, adhesions of uterus and omentum to the intraabdominal wall. Normal fallopian tubes and ovaries. DESCRIPTION OF PROCEDURE: Operative summary: The patient taken to the operating room, where spinal anesthesia was induced. She was prepped and draped in sterile fashion in the supine position. A Doty catheter was placed. A Pfannenstiel skin incision was made with the scalpel and carried through to the fascia. The fascia was nicked and extended. The fascia was dissected off the rectus muscles. The cavity was entered. Adhesions of the uterus and omentum to the anterior abdominal wall were taken down sharply. A Mobius retractor was placed. A low transverse uterine incision was created with a scalpel until bulging membranes were noted. This was extended manually. The was delivered in the vertex position with single use of the vacuum extractor. The shoulders delivered with ease. The cord was doubly clamped and cut. The infant was handed off to the awaiting nurses. A true knot was noted in the umbilical cord. The placenta was expressed. The uterus was closed with 0 Vicryl in a running locked fashion. A second imbricating layer of 0 Vicryl was placed. The Mobius retractor was removed. The fascia was closed with 0 Vicryl in a running layer. There was no discernible peritoneum left due to dense adhesions. The subcutaneous layer was closed with 3-0 chromic. The skin was closed with 4-0 Monocryl in subcuticular sutures. Sponge, instrument, and needle counts were correct. Andreas De La Rosa DO, assisted throughout the procedure. He upgraded each layer of the incision and helped deliver the fetus and subsequently close. He was indispensable to the successful completion of the procedure.
[2018-12-20] MEDS ORDERED: NORCO, ANEXSIA 5/325MG TABLET (HYDROcodone/ACETAMINOPHEN) PO ONE (10:30)
[2018-12-20] MEDS: KETOROLAC 30 MG/ML VIAL (J1885) IV SCH ×2 (16:29→22:18)
[2018-12-20] MEDS ORDERED: LR 500 ML IV ONE (23:00)
[2018-12-21 02:00] VITALS: BP 109/56
[2018-12-21] MEDS: KETOROLAC 30 MG/ML VIAL (J1885) IV SCH (04:29)
[2018-12-21 06:15] VITALS: BP 137/59
[2018-12-21 07:14] LABS: HEMOGLOBIN 10.7 g/dl (12.0-15.5); MEAN CORPUSCULAR HEMOGLOBIN 32.4 pg (27.0-33.0); MEAN CORPUSCULAR HGB CONC 32.4 g/dl (32.0-36.5); PLATELET COUNT, AUTOMATED 229 10^3/uL (150-450); WHITE BLOOD COUNT 15.6 10^3/uL (4.0-10.0)
[2018-12-21] MEDS: PRENATAL VITAMINS CHEWABLE TABLET PO SCH (09:00)
[2018-12-21] MEDS ORDERED: IBUPROFEN 800 MG TAB PO SCH (12:00)
[2018-12-21 12:02] VITALS: BP 118/58
[2018-12-21 14:19] VITALS: BP 119/53
[2018-12-21] MEDS ORDERED: IBUP80TA PO (14:49)
[2018-12-21] MEDS ORDERED: OXYC1TAB23 PO (14:49)
--- NOTE | 2018-12-21 15:57 | DSES ---
DATE OF ADMISSION: 12/20/2018 DATE OF DISCHARGE: 33-year-old, 4, para 3 female at 37 and 0/7 weeks gestation who presented for repeat section. The indication for delivery prior to 39 weeks is gestational diabetes, chronic hypertension, and morbid obesity. She has had three prior sections. HOSPITAL COURSE: On 12/20/2018, the patient underwent repeat section for an 8 pound 9 ounce female infant, scores of 8 and 9. The procedure was without complication. The procedure was done in the main operating room with the indication of morbid obesity. Her postoperative course was unremarkable. She had adequate return of bladder and bowel function. The baby went to the intensive care unit (NICU) for glucose control issues. The patient strongly desired discharge on postoperative day one. Her postoperative hemoglobin was 10.7 g/dL. ADMISSION DIAGNOSES: 1. 37 weeks. 2. Chronic hypertension. 3. Morbid obesity. 4. Gestational diabetes. DISCHARGE DIAGNOSES: 1. 37 weeks. 2. Chronic hypertension. 3. Morbid obesity. 4. Gestational diabetes. PLAN: The patient will followup with Dr. Horner in 2 weeks.
[2018-12-29] MEDS ORDERED: OXYC1TAB23 PO (13:11)
== END 2018-12-21 16:35 | disposition home or self-care (01) | DRG 540 ==
LOC: M LDI 05:31 → M OBS 10:45
PROVIDERS: ADMIT Specialist; ATTEND Specialist
PROC: 10D00Z1 Extraction of Products of Conception, Low, Open Approach (ICD-10-PCS; principal; 2018-12-20 07:30)
DX: O10.92 Unspecified pre-existing hypertension complicating childbirth (principal); E66.01 Morbid (severe) obesity due to excess calories; O99.214 Obesity complicating childbirth; O24.429 Gestational diabetes mellitus in childbirth, unspecified control; O34.211 Maternal care for low transverse scar from previous cesarean delivery; Z37.0 Single live birth; Z3A.37 37 weeks gestation of pregnancy

== ENCOUNTER 2019-11-15 08:40 | Emergency (ER) | payer OTHER ==
[~2019-11-15] VITALS: Ht 154.9 cm; Wt 161.9 kg
[~2019-11-15 08:40] MED LIST changes: +OXYC1TAB23 PO
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
[2019-11-15 10:58] VITALS: BP 138/83
== END 2019-11-15 10:52 | disposition home or self-care (01) ==
LOC: M ED 08:40
DX: S70.02XA Contusion of left hip, initial encounter (principal); S40.012A Contusion of left shoulder, initial encounter; V49.40XA Driver injured in collision with unspecified motor vehicles in traffic accident, initial encounter; Y92.9 Unspecified place or not applicable; Y93.9 Activity, unspecified; Y99.9 Unspecified external cause status; Z91.013 Allergy to seafood; Z91.018 Allergy to other foods; Z91.040 Latex allergy status; Z91.041 Radiographic dye allergy status

== ENCOUNTER → 2020-01-24 | Outpatient (CLI) | payer OTHER ==
--- NOTE | 2020-01-24 16:25 | REP ---
INDICATION: KNEE PAIN COMPARISON: 04/19/2018. TECHNIQUE: Five views left knee obtained. FINDINGS: There is no acute fracture or dislocation. There are moderate degenerative changes noted, with moderate lateral joint space narrowing and spurring, with mild subchondral sclerosis. There is moderate spurring of the medial tibial spine. There is moderate spurring of the medial femoral condyle with mild spurring of the medial tibial plateau. There is mild lateral patellofemoral compartment narrowing with mild subchondral sclerosis. There is mild spurring of the lateral patellar facet. There is mild to moderate joint effusion. IMPRESSION: Moderate arthritic changes particularly in the lateral joint compartment. Mild to moderate joint effusion. Findings are similar to the prior study. <Electronically signed by Michel Escobar > 01/24/20 [id number]
== END ==
LOC: M WUC 14:43
PROVIDERS: ATTEND Nurse Practitioner Family
DX: M17.12 Unilateral primary osteoarthritis, left knee (principal); M25.462 Effusion, left knee

== ENCOUNTER 2020-02-07 15:52 | Emergency (ER) | payer OTHER ==
[~2020-02-07] VITALS: Ht 154.9 cm; Wt 162.7 kg
[2020-02-07 15:53] VITALS: BP 145/90
[2020-02-07] MEDS ORDERED: PROAAER10 INH (16:18)
== END 2020-02-07 16:28 | disposition home or self-care (01) ==
LOC: M ED 15:52
DX: Z76.0 Encounter for issue of repeat prescription (principal); J45.909 Unspecified asthma, uncomplicated; F17.200 Nicotine dependence, unspecified, uncomplicated; Z88.8 Allergy status to other drugs, medicaments and biological substances; Z91.041 Radiographic dye allergy status; Z91.040 Latex allergy status; Z91.013 Allergy to seafood; Z79.51 Long term (current) use of inhaled steroids

== ENCOUNTER 2020-07-13 17:51 | Emergency (ER) | payer OTHER ==
[~2020-07-13] VITALS: Ht 157.5 cm; Wt 157.3 kg
[2020-07-13 17:51] VITALS: BP 187/99
[~2020-07-13 17:51] MED LIST changes: +PROAAER10 INH
== END 2020-07-13 20:20 | disposition home or self-care (01) ==
LOC: M ED 17:51
DX: R06.00 Dyspnea, unspecified (principal); R07.9 Chest pain, unspecified; Z53.29 Procedure and treatment not carried out because of patient's decision for other reasons; I10 Essential (primary) hypertension; F17.200 Nicotine dependence, unspecified, uncomplicated; Z79.51 Long term (current) use of inhaled steroids; Z91.041 Radiographic dye allergy status; Z91.013 Allergy to seafood; Z91.040 Latex allergy status; Z91.018 Allergy to other foods; Z88.8 Allergy status to other drugs, medicaments and biological substances

== ENCOUNTER → 2020-11-05 | Outpatient (REF) | payer OTHER | LOC: M SFHCPLAZ 17:09 | PROVIDERS: ATTEND Student in an Organized Health Care Education/Training Program | DX: R05 Cough (principal); Z20.822 Contact with and (suspected) exposure to COVID-19 ==

== ENCOUNTER 2021-02-15 11:33 | Emergency (ER) | payer OTHER ==
[~2021-02-15] VITALS: Ht 157.5 cm; Wt 172.8 kg
[2021-02-15 13:07] LABS: HEMATOCRIT 39.5 % (36.0-47.0); HEMOGLOBIN 12.6 g/dl (12.0-15.5); MEAN CORPUSCULAR HEMOGLOBIN 28.3 pg (27.0-33.0); MEAN CORPUSCULAR HGB CONC 31.9 g/dl (32.0-36.5); MEAN CORPUSCULAR VOLUME 88.6 fl (80.0-96.0); PLATELET COUNT, AUTOMATED 258 10^3/uL (150-450); RED BLOOD COUNT 4.46 10^6/uL (4.00-5.40); WHITE BLOOD COUNT 9.6 10^3/uL (4.0-10.0)
[2021-02-15 14:08] LABS: APPEARANCE, URINE CLOUDY (CLEAR); BACTERIA, URINE AUTO NEGATIVE (NEGATIVE); BILIRUBIN, URINE AUTO NEGATIVE (NEGATIVE); BLOOD, URINE BLOOD NEGATIVE (NEGATIVE); COLOR, URINE YELLOW (YELLOW); GLUCOSE, URINE (UA) AUTO NEGATIVE (NEGATIVE); KETONE, URINE AUTO NEGATIVE (NEGATIVE); LEUKOCYTE ESTERASE, URINE AUTO 2+ (NEGATIVE); MUCUS, URINE SMALL (NEGATIVE); NITRITE, URINE AUTO NEGATIVE (NEGATIVE); PROTEIN, URINE AUTO NEGATIVE (NEGATIVE); RBC, URINE AUTO 9 /HPF (0-3); SQUAMOUS EPITHELIAL CELL UR AU 9 /HPF (0-6); UROBILINOGEN, URINE AUTO 0.2 mg/dL (0.0-2.0); WBC, URINE AUTO 27 /HPF (0-3)
--- NOTE | 2021-02-15 14:15 | REP ---
INDICATION: abdominal pain, approx 8 weeks COMPARISON: None. TECHNIQUE: Transabdominal 1st trimester obstetrical ultrasound with color Doppler evaluation. FINDINGS: Single live early intrauterine is appreciated. Gestational sac with yolk sac and pole identified. Delcambre-rump length of 14 mm corresponds to 7 weeks 5 days gestational age with estimated date of delivery 09/29/2021. heart rate equals 152 beats per minute. There is suggestion for a subchorionic hemorrhage adjacent to the gestational sac measuring 43 x 10 x 39 mm. Maternal ovaries are normal. IMPRESSION: Single live early intrauterine at 7 weeks 5 days gestational age. Subchorionic hemorrhage suggested. Complete anatomical assessment should be performed and 19-20 weeks. <Electronically signed by Asad Jefferson > 02/15/21 [id number]
[2021-02-15] MEDS ORDERED: CEPH500C PO (14:29)
[2021-02-15] MEDS ORDERED: CEPHALEXIN 500 MG CAP PO ONE ×3 (14:30→14:50)
[2021-02-15 14:52] VITALS: BP 133/79
== END 2021-02-15 14:59 | disposition home or self-care (01) ==
LOC: M ED 11:33
DX: O20.8 Other hemorrhage in early pregnancy (principal); O23.91 Unspecified genitourinary tract infection in pregnancy, first trimester; Z3A.01 Less than 8 weeks gestation of pregnancy; Z79.899 Other long term (current) drug therapy

== ENCOUNTER 2021-03-15 12:32 | Emergency (ER) | payer OTHER ==
[~2021-03-15] VITALS: Ht 157.5 cm; Wt 170.2 kg
[2021-03-15 13:24] LABS: BASO % 0.3 % (0.0-1.0); EOS # 0.3 10^3/uL (0.0-0.5); EOS % 2.9 % (0.0-3.0); HEMATOCRIT 38.4 % (36.0-47.0); HEMOGLOBIN 12.3 g/dl (12.0-15.5); LYMPH # 1.8 10^3/uL (1.5-5.0); LYMPH % 20.9 % (24.0-44.0); MEAN CORPUSCULAR HEMOGLOBIN 28.6 pg (27.0-33.0); MEAN CORPUSCULAR VOLUME 89.3 fl (80.0-96.0); MONO # 0.5 10^3/uL (0.0-0.8); MONO % 5.4 % (2.0-8.0); NEUTROPHILS # 6.1 10^3/uL (1.5-8.5); NEUTROPHILS % 70.3 % (36.0-66.0); PLATELET COUNT, AUTOMATED 206 10^3/uL (150-450); WHITE BLOOD COUNT 8.6 10^3/uL (4.0-10.0)
[2021-03-15 13:40] VITALS: BP 146/86
[2021-03-15 13:52] LABS: HEMOGLOBIN A1c 6.3 %
[2021-03-15 14:27] LABS: BLOOD UREA NITROGEN 10 MG/DL (7-18); CALCIUM LEVEL 8.6 MG/DL (8.5-10.1); CARBON DIOXIDE LEVEL 22 MEQ/L (21-32); CHLORIDE LEVEL 110 MEQ/L (98-107); CREATININE FOR GFR 0.43 MG/DL (0.55-1.30); GLOMERULAR FILTRATION RATE > 60.0 (>60); GLUCOSE, FASTING 169 MG/DL (70-100); HCG, SERUM QUANTITATIVE 33205 MIU/ML; SODIUM LEVEL 139 MEQ/L (136-145)
== END 2021-03-15 15:50 | disposition left against medical advice (07) ==
LOC: M ED 12:32
DX: O23.42 Unspecified infection of urinary tract in pregnancy, second trimester (principal); O99.810 Abnormal glucose complicating pregnancy; R10.9 Unspecified abdominal pain; J45.909 Unspecified asthma, uncomplicated; Z3A.13 13 weeks gestation of pregnancy; Z53.21 Procedure and treatment not carried out due to patient leaving prior to being seen by health care provider

== ENCOUNTER 2021-05-02 09:34 | Inpatient (IN) | payer OTHER ==
[~2021-05-02] VITALS: Ht 154.9 cm; Wt 170.0 kg
[2021-05-02] MEDS ORDERED: M-NA1TAB PO (09:39)
[2021-05-02] MEDS: NS 1,000 ML IV SCH ×2 (10:25→15:06)
[2021-05-02] MEDS ORDERED: dexameTHASONE 20MG/5ML VIAL (J1100 PER 1MG) IV ONE ×2 (10:25→11:10)
[2021-05-02 11:08] LABS: BASO % 0.2 % (0.0-1.0); EOS # 0.2 10^3/uL (0.0-0.5); EOS % 0.8 % (0.0-3.0); LYMPH # 1.5 10^3/uL (1.5-5.0); LYMPH % 6.9 % (24.0-44.0); MEAN CORPUSCULAR HEMOGLOBIN 30.1 pg (27.0-33.0); MEAN CORPUSCULAR HGB CONC 33.3 g/dl (32.0-36.5); MEAN CORPUSCULAR VOLUME 90.2 fl (80.0-96.0); MONO # 0.7 10^3/uL (0.0-0.8); MONO % 3.4 % (2.0-8.0); NEUTROPHILS # 18.6 10^3/uL (1.5-8.5); NEUTROPHILS % 88.2 % (36.0-66.0); PLATELET COUNT, AUTOMATED 235 10^3/uL (150-450); RED BLOOD COUNT 3.99 10^6/uL (4.00-5.40)
[2021-05-02] MEDS ORDERED: CLINDAMYCIN 600 MG in IV 1 EA IV ONE (11:25)
[2021-05-02 11:56] LABS: MONO SCRN NEGATIVE (NEGATIVE)
[2021-05-02 12:13] LABS: ALBUMIN 2.8 GM/DL (3.2-5.2); ALT/SGPT 18 U/L (12-78); BILIRUBIN,DIRECT 0.1 MG/DL (0.0-0.2); BILIRUBIN,TOTAL 0.3 MG/DL (0.2-1.0); TOTAL PROTEIN 6.4 GM/DL (6.4-8.2)
[2021-05-02] MEDS ORDERED: ACETAMINOPHEN 325 MG TAB PO ONE (13:05)
[2021-05-02] MEDS ORDERED: ACETAMINOPHEN TAB 650MG DOSE (2X325MG) PO PRN (15:30)
[2021-05-02] MEDS ORDERED: HOME MED LIST COMPLETE! XX SCH (15:40)
[2021-05-02 16:12] LABS: RSV AMPLIFICATION NEGATIVE (NEGATIVE)
[2021-05-02] MEDS ORDERED: ALBUTEROL 90 MCG/ACT 8GM HFA INHALER INH PRN (16:15)
[2021-05-02 18:35] VITALS: BP 161/75
[2021-05-02] MEDS: AMPICILLIN SOD/SULBACTAM SOD 3 GM in D5W MINI-BAG PLUS 100 ML IV SCH (19:43)
[2021-05-02 20:00] VITALS: BP 150/69
[2021-05-03] MEDS: AMPICILLIN SOD/SULBACTAM SOD 3 GM in D5W MINI-BAG PLUS 100 ML IV SCH ×3 (00:58→11:47)
[2021-05-03 06:00] VITALS: BP 133/65
[2021-05-03 07:19] LABS: HEMATOCRIT 31.8 % (36.0-47.0); HEMOGLOBIN 10.6 g/dl (12.0-15.5); MEAN CORPUSCULAR HEMOGLOBIN 30.3 pg (27.0-33.0); MEAN CORPUSCULAR HGB CONC 33.3 g/dl (32.0-36.5); MEAN CORPUSCULAR VOLUME 90.9 fl (80.0-96.0); PLATELET COUNT, AUTOMATED 230 10^3/uL (150-450); WHITE BLOOD COUNT 16.3 10^3/uL (4.0-10.0)
[2021-05-03 07:36] LABS: HEMOGLOBIN A1c 6.1 %
[2021-05-03 08:03] LABS: ALBUMIN 2.3 GM/DL (3.2-5.2); ALT/SGPT 16 U/L (12-78); BILIRUBIN,TOTAL 0.2 MG/DL (0.2-1.0); BLOOD UREA NITROGEN 8 MG/DL (7-18); CALCIUM LEVEL 8.2 MG/DL (8.5-10.1); CARBON DIOXIDE LEVEL 24 MEQ/L (21-32); CHLORIDE LEVEL 109 MEQ/L (98-107); CHOLESTEROL LEVEL 182 MG/DL (<200); CREATININE FOR GFR 0.38 MG/DL (0.55-1.30); GLOMERULAR FILTRATION RATE > 60.0 (>60); GLUCOSE, FASTING 162 MG/DL (70-100); HDL CHOLESTEROL 54 MG/DL (>40); LDL CHOLESTEROL 110 MG/DL (<100); NON-HDL-C 128 MG/DL; SODIUM LEVEL 139 MEQ/L (136-145); TOTAL PROTEIN 5.6 GM/DL (6.4-8.2); TRIGLYCERIDES LEVEL 92 MG/DL (<150)
[2021-05-03] MEDS ORDERED: ENOXAPARIN 40MG/0.4ML SYRINGE (J1650 PER 10MG) SC SCH (09:00)
[2021-05-03 12:48] VITALS: BP 135/75
[2021-05-03] MEDS ORDERED: CALCIUM CARBONATE 500 MG CHEW U/D PO ONE (13:05)
[2021-05-03] MEDS ORDERED: CALCIUM CARBONATE 500 MG CHEW U/D PO PRN (13:15)
[2021-05-03] MEDS ORDERED: AMOX875T2 PO (16:26)
[2021-05-04] MEDS ORDERED: INFLUENZA QUADRIVALENT PF VACCINE 0.5ML SYRINGE IM ONE (09:00)
== END 2021-05-03 16:45 | disposition home or self-care (01) | DRG 113 ==
LOC: M ED 09:34 → M ED INP 15:27 → M PED 18:40
PROVIDERS: ADMIT Specialist; ATTEND Specialist
DX: J36 Peritonsillar abscess (principal); Z68.45 Body mass index [BMI] 70 or greater, adult; O99.352 Diseases of the nervous system complicating pregnancy, second trimester; E66.01 Morbid (severe) obesity due to excess calories; Z3A.19 19 weeks gestation of pregnancy; Z88.8 Allergy status to other drugs, medicaments and biological substances; Z91.013 Allergy to seafood; Z91.018 Allergy to other foods; Z91.041 Radiographic dye allergy status; Z91.040 Latex allergy status; O99.212 Obesity complicating pregnancy, second trimester; Z91.14 Patient's other noncompliance with medication regimen; O99.512 Diseases of the respiratory system complicating pregnancy, second trimester; G47.33 Obstructive sleep apnea (adult) (pediatric); O09.522 Supervision of elderly multigravida, second trimester

== ENCOUNTER 2021-05-04 09:45 | Emergency (ER) | payer OTHER ==
[~2021-05-04] VITALS: Ht 154.9 cm; Wt 171.5 kg
[2021-05-04 09:45] VITALS: BP 152/69
[~2021-05-04 09:45] MED LIST changes: +AMOX875T2 PO; +M-NA1TAB PO
== END 2021-05-04 10:57 | disposition home or self-care (01) ==
LOC: M ED 09:45
DX: J03.90 Acute tonsillitis, unspecified (principal); Z91.041 Radiographic dye allergy status; Z91.040 Latex allergy status; Z91.013 Allergy to seafood; Z91.018 Allergy to other foods

== ENCOUNTER → 2021-05-05 | Outpatient (CLI) | payer OTHER | LOC: M WHC 13:08 | PROVIDERS: ATTEND Obstetrics & Gynecology | DX: Z36.89 Encounter for other specified antenatal screening (principal); Z3A.18 18 weeks gestation of pregnancy ==

== ENCOUNTER → 2021-06-05 | Outpatient (CLI) | payer OTHER | LOC: M WHC 12:23 | PROVIDERS: ATTEND Obstetrics & Gynecology | DX: O26.842 Uterine size-date discrepancy, second trimester (principal); Z3A.24 24 weeks gestation of pregnancy ==

== ENCOUNTER 2021-07-16 09:10 | Emergency (ER) | payer OTHER ==
[~2021-07-16] VITALS: Ht 154.9 cm; Wt 169.1 kg
[~2021-07-16 09:10] MED LIST changes: -AMOX875T; -HOME MED LIST COMPLETE! XX SCH; -IPRA0.00 NEB; -IPRATROPIUM 0.5MG/ALBUTEROL 2.5MG INH SOL UD 3ML (DUONEB) NEB ONE; -IPRATROPIUM 0.5MG/ALBUTEROL 2.5MG INH SOL UD 3ML (DUONEB) NEB PRN; -METF750T36 PO; -PRED20TA PO; -predniSONE 20 MG TAB PO SCH
[2021-07-16 09:11] VITALS: BP 171/77
[2021-07-16] MEDS ORDERED: AMOX875T (09:32)
[2021-07-16 10:28] LABS: RSV AMPLIFICATION NEGATIVE (NEGATIVE)
[2021-07-16] MEDS ORDERED: NS 1,000 ML IV ONE (12:15)
== END 2021-07-16 12:50 | disposition admitted as inpatient to this hospital (09) ==
LOC: M ED 09:10
DX: R06.02 Shortness of breath (principal); I10 Essential (primary) hypertension; E11.9 Type 2 diabetes mellitus without complications; J45.909 Unspecified asthma, uncomplicated; Z79.899 Other long term (current) drug therapy; Z79.2 Long term (current) use of antibiotics; Z91.041 Radiographic dye allergy status; Z91.018 Allergy to other foods; Z91.013 Allergy to seafood; Z91.040 Latex allergy status; Z88.8 Allergy status to other drugs, medicaments and biological substances

== ENCOUNTER 2021-07-16 18:34 | Inpatient (IN) | payer OTHER ==
[~2021-07-16] VITALS: Ht 154.9 cm; Wt 173.4 kg
[~2021-07-16 18:34] MED LIST changes: +AMOX875T
[2021-07-16 18:55] VITALS: BP 130/72
[2021-07-16] MEDS: IPRATROPIUM 0.5MG/ALBUTEROL 2.5MG INH SOL UD 3ML (DUONEB) NEB PRN ×2 (21:02→23:55)
[2021-07-16 22:00] VITALS: BP 142/74
[2021-07-16 23:15] LABS: GC DNA AMPLIFICATION NEGATIVE (NEGATIVE)
[2021-07-16] MEDS ORDERED: guaiFENesin SYRUP 200MG 10ML UDC PO PRN (23:50)
[2021-07-17] MEDS: IPRATROPIUM 0.5MG/ALBUTEROL 2.5MG INH SOL UD 3ML (DUONEB) NEB PRN ×5 (02:28→21:21)
[2021-07-17 06:00] VITALS: BP 110/56
[2021-07-17 06:55] LABS: BASO % 0.2 % (0.0-1.0); EOS # 0.2 10^3/uL (0.0-0.5); EOS % 1.4 % (0.0-3.0); HEMATOCRIT 33.7 % (36.0-47.0); HEMOGLOBIN 11.2 g/dl (12.0-15.5); LYMPH # 1.4 10^3/uL (1.5-5.0); LYMPH % 8.5 % (24.0-44.0); MEAN CORPUSCULAR HEMOGLOBIN 31.5 pg (27.0-33.0); MEAN CORPUSCULAR HGB CONC 33.2 g/dl (32.0-36.5); MEAN CORPUSCULAR VOLUME 94.9 fl (80.0-96.0); MONO # 0.9 10^3/uL (0.0-0.8); MONO % 5.8 % (2.0-8.0); NEUTROPHILS # 13.3 10^3/uL (1.5-8.5); NEUTROPHILS % 83.6 % (36.0-66.0); PLATELET COUNT, AUTOMATED 216 10^3/uL (150-450); RED BLOOD COUNT 3.55 10^6/uL (4.00-5.40); WHITE BLOOD COUNT 15.9 10^3/uL (4.0-10.0)
[2021-07-17 07:35] LABS: BLOOD UREA NITROGEN 9 MG/DL (7-18); CALCIUM LEVEL 9.3 MG/DL (8.5-10.1); CARBON DIOXIDE LEVEL 25 MEQ/L (21-32); CHLORIDE LEVEL 108 MEQ/L (98-107); CREATININE FOR GFR 0.39 MG/DL (0.55-1.30); GLOMERULAR FILTRATION RATE > 60.0 (>60); GLUCOSE, FASTING 160 MG/DL (70-100); MAGNESIUM LEVEL 1.7 MG/DL (1.8-2.4); NT-PRO BNP 17 PG/ML (<125); POTASSIUM SERUM 4.1 MEQ/L (3.5-5.1); SODIUM LEVEL 140 MEQ/L (136-145)
[2021-07-17] MEDS ORDERED: predniSONE 20 MG TAB PO SCH (09:00)
[2021-07-17] MEDS: OXYMETAZOLINE 0.05% NASAL SPRAY (AFRIN) SCH ×2 (13:47→20:09)
[2021-07-17 14:00] VITALS: BP 137/79
[2021-07-17 14:16] VITALS: O2SAT 95
[2021-07-17] MEDS: predniSONE 20 MG TAB PO SCH (20:08)
[2021-07-17 21:53] VITALS: BP 138/72
[2021-07-17 23:13] VITALS: O2SAT 96
[2021-07-18] MEDS: IPRATROPIUM 0.5MG/ALBUTEROL 2.5MG INH SOL UD 3ML (DUONEB) NEB PRN ×4 (03:25→19:30)
[2021-07-18 06:00] VITALS: BP 137/70
[2021-07-18] MEDS: predniSONE 20 MG TAB PO SCH ×2 (08:06→22:03)
[2021-07-18] MEDS: OXYMETAZOLINE 0.05% NASAL SPRAY (AFRIN) SCH ×2 (08:06→22:04)
[2021-07-18 13:30] VITALS: BP 141/71
[2021-07-18 15:09] VITALS: O2SAT 95
[2021-07-18] MEDS ORDERED: GLUCOSE 4GM CHEW TABLET PO PRN (15:40)
[2021-07-18] MEDS ORDERED: DEXTROSE 50% 50 ML SYRINGE IV PRN (15:40)
[2021-07-18] MEDS ORDERED: GLUCAGON INJ 1MG VIAL SC PRN (15:40)
[2021-07-18] MEDS: INSULIN LISPRO (NovoLOG) PER UNIT SC SCH (19:43)
[2021-07-18 20:08] VITALS: BP 154/84
[2021-07-18] MEDS: ANUSOL HC CREAM 30GM TOP SCH (21:00)
[2021-07-18] MEDS ORDERED: INSULIN LISPRO (NovoLOG) PER UNIT SC SCH (21:00)
[2021-07-18 22:58] LABS: HEMATOCRIT 34.2 % (36.0-47.0); MEAN CORPUSCULAR HEMOGLOBIN 30.8 pg (27.0-33.0); MEAN CORPUSCULAR HGB CONC 32.2 g/dl (32.0-36.5); MEAN CORPUSCULAR VOLUME 95.8 fl (80.0-96.0); PLATELET COUNT, AUTOMATED 241 10^3/uL (150-450); RED BLOOD COUNT 3.57 10^6/uL (4.00-5.40); WHITE BLOOD COUNT 15.7 10^3/uL (4.0-10.0)
[2021-07-18 23:16] LABS: INR 0.93; PROTHROMBIN TIME 12.9 SECONDS (12.7-14.5)
[2021-07-18 23:17] LABS: PARTIAL THROMBOPLASTIN TIME 25.3 SECONDS (25.9-37.0)
[2021-07-19 00:04] VITALS: O2SAT 94
[2021-07-19] MEDS: IPRATROPIUM 0.5MG/ALBUTEROL 2.5MG INH SOL UD 3ML (DUONEB) NEB PRN (04:30)
[2021-07-19 06:22] VITALS: BP 130/72
[2021-07-19] MEDS ORDERED: HOME MED LIST COMPLETE! XX SCH (08:20)
[2021-07-19] MEDS: ANUSOL HC CREAM 30GM TOP SCH (09:00)
[2021-07-19] MEDS: INSULIN LISPRO (NovoLOG) PER UNIT SC SCH ×2 (09:53→11:24)
[2021-07-19] MEDS: OXYMETAZOLINE 0.05% NASAL SPRAY (AFRIN) SCH (09:54)
[2021-07-19] MEDS: predniSONE 20 MG TAB PO SCH (09:55)
[2021-07-19 11:21] VITALS: O2SAT 96
[2021-07-19 13:34] VITALS: BP 127/75
[2021-07-19] MEDS ORDERED: PRED20TA PO (13:40)
[2021-07-19] MEDS ORDERED: IPRA0.00 NEB (13:40)
[2021-07-19] MEDS ORDERED: METF750T36 PO (13:41)
== END 2021-07-19 16:40 | disposition home or self-care (01) | DRG 566 ==
LOC: M ED INP 18:34 → M MSPAV 18:54
PROVIDERS: ADMIT Obstetrics & Gynecology; ATTEND Obstetrics & Gynecology
DX: O99.513 Diseases of the respiratory system complicating pregnancy, third trimester (principal); Z68.45 Body mass index [BMI] 70 or greater, adult; J45.901 Unspecified asthma with (acute) exacerbation; O34.211 Maternal care for low transverse scar from previous cesarean delivery; E66.01 Morbid (severe) obesity due to excess calories; O24.415 Gestational diabetes mellitus in pregnancy, controlled by oral hypoglycemic drugs; Z3A.30 30 weeks gestation of pregnancy; O09.523 Supervision of elderly multigravida, third trimester; Z91.013 Allergy to seafood; Z91.018 Allergy to other foods; Z88.8 Allergy status to other drugs, medicaments and biological substances; Z91.041 Radiographic dye allergy status; Z87.891 Personal history of nicotine dependence; O99.213 Obesity complicating pregnancy, third trimester

== ENCOUNTER → 2021-07-16 | Outpatient (CLI) | payer OTHER ==
[~2021-07-16] VITALS: Ht 154.9 cm; Wt 175.0 kg
[~2021-07-16] MED LIST changes: +AMOX875T; +HOME MED LIST COMPLETE! XX SCH; +IPRA0.00 NEB; +IPRATROPIUM 0.5MG/ALBUTEROL 2.5MG INH SOL UD 3ML (DUONEB) NEB ONE; +IPRATROPIUM 0.5MG/ALBUTEROL 2.5MG INH SOL UD 3ML (DUONEB) NEB PRN; +METF750T36 PO; +PRED20TA PO; +predniSONE 20 MG TAB PO SCH
[2021-07-16 13:13] VITALS: BP 135/63
[2021-07-16 13:38] LABS: BASO % 0.1 % (0.0-1.0); EOS # 0.2 10^3/uL (0.0-0.5); EOS % 1.3 % (0.0-3.0); HEMATOCRIT 32.4 % (36.0-47.0); HEMOGLOBIN 10.9 g/dl (12.0-15.5); LYMPH # 1.7 10^3/uL (1.5-5.0); MEAN CORPUSCULAR HEMOGLOBIN 31.5 pg (27.0-33.0); MEAN CORPUSCULAR HGB CONC 33.6 g/dl (32.0-36.5); MEAN CORPUSCULAR VOLUME 93.6 fl (80.0-96.0); MONO # 0.8 10^3/uL (0.0-0.8); MONO % 5.6 % (2.0-8.0); NEUTROPHILS # 11.4 10^3/uL (1.5-8.5); NEUTROPHILS % 80.6 % (36.0-66.0); PLATELET COUNT, AUTOMATED 228 10^3/uL (150-450); RED BLOOD COUNT 3.46 10^6/uL (4.00-5.40); WHITE BLOOD COUNT 14.1 10^3/uL (4.0-10.0)
[2021-07-16 14:06] LABS: ALBUMIN 2.3 GM/DL (3.2-5.2); ALT/SGPT 12 U/L (12-78); BILIRUBIN,TOTAL 0.2 MG/DL (0.2-1.0); BLOOD UREA NITROGEN 7 MG/DL (7-18); CALCIUM LEVEL 8.9 MG/DL (8.5-10.1); CARBON DIOXIDE LEVEL 25 MEQ/L (21-32); CHLORIDE LEVEL 109 MEQ/L (98-107); GLOMERULAR FILTRATION RATE > 60.0 (>60); GLUCOSE, FASTING 189 MG/DL (70-100); POTASSIUM SERUM 3.8 MEQ/L (3.5-5.1); SODIUM LEVEL 140 MEQ/L (136-145); TOTAL PROTEIN 6.1 GM/DL (6.4-8.2)
[2021-07-16 14:28] VITALS: BP 126/63
[2021-07-16 14:53] LABS: HEPATITIS C VIRUS ABY INDEX 0.1 INDEX (<0.8); HIV 1&2 SCREEN CENTAUR NEGATIVE (NEGATIVE)
[2021-07-16 16:26] VITALS: BP 128/65
== END ==
LOC: M LDO 12:54
PROVIDERS: ATTEND Obstetrics & Gynecology
DX: O99.513 Diseases of the respiratory system complicating pregnancy, third trimester (principal); J45.901 Unspecified asthma with (acute) exacerbation; O34.219 Maternal care for unspecified type scar from previous cesarean delivery; Z91.041 Radiographic dye allergy status; Z91.018 Allergy to other foods; Z91.013 Allergy to seafood; Z91.040 Latex allergy status; Z88.3 Allergy status to other anti-infective agents; Z88.8 Allergy status to other drugs, medicaments and biological substances; Z3A.30 30 weeks gestation of pregnancy

== ENCOUNTER → 2021-08-26 | Outpatient (REF) | payer OTHER ==
[~2021-08-26] MED LIST changes: +IPRA0.00 NEB; +METF750T36 PO; +PRED20TA PO
== END ==
LOC: M SFHCWAGY 17:02
PROVIDERS: ATTEND Specialist
DX: Z36.85 Encounter for antenatal screening for Streptococcus B (principal)

== ENCOUNTER 2022-03-28 19:02 | Emergency (ER) | payer OTHER ==
[~2022-03-28] VITALS: Ht 157.5 cm; Wt 172.8 kg
[2022-03-28 19:02] VITALS: BP 198/101
[~2022-03-28 19:02] MED LIST changes: +DOCU-153 PO
[2022-03-28] MEDS ORDERED: ACET-861 PO (19:11)
[2022-03-28] MEDS ORDERED: BENZOCAINE 20% GEL 9GM TUBE (ANBESOL MAX STRENGTH) TOP ONE (20:35)
[2022-03-28] MEDS ORDERED: CLINDAMYCIN 150MG CAPSULE PO ONE (20:35)
== END 2022-03-28 21:04 | disposition home or self-care (01) ==
LOC: M ED 19:02
DX: K02.9 Dental caries, unspecified (principal); K08.89 Other specified disorders of teeth and supporting structures; R68.84 Jaw pain; I10 Essential (primary) hypertension; J45.909 Unspecified asthma, uncomplicated; F41.9 Anxiety disorder, unspecified; F32.A Depression, unspecified; F17.200 Nicotine dependence, unspecified, uncomplicated; Z88.1 Allergy status to other antibiotic agents; Z88.8 Allergy status to other drugs, medicaments and biological substances; Z91.041 Radiographic dye allergy status; Z91.013 Allergy to seafood; Z79.52 Long term (current) use of systemic steroids; Z79.899 Other long term (current) drug therapy

== ENCOUNTER → 2022-04-06 | Outpatient (CLI) | payer OTHER ==
[~2022-04-06] MED LIST changes: +ACET-861 PO
[2022-04-06 17:15] LABS: BLOOD UREA NITROGEN 15 MG/DL (9-23); CALCIUM LEVEL 8.7 MG/DL (8.5-10.1); CARBON DIOXIDE LEVEL 26 MMOL/L (20-31); CHLORIDE LEVEL 107 MMOL/L (98-107); GLUCOSE, FASTING 142 MG/DL (60-100); POTASSIUM SERUM 4.2 MMOL/L (3.5-5.1); SODIUM LEVEL 140 MMOL/L (136-145)
[2022-04-06 20:16] LABS: CREATININE FOR GFR 0.47 MG/DL (0.55-1.30); GLOMERULAR FILTRATION RATE > 60.0 (>60)
== END ==
LOC: M PLALAB 12:31
PROVIDERS: ATTEND Student in an Organized Health Care Education/Training Program
DX: I10 Essential (primary) hypertension (principal)

== ENCOUNTER 2022-04-24 13:13 | Observation (INO) | payer OTHER ==
[~2022-04-24] VITALS: Ht 154.9 cm; Wt 170.6 kg
[2022-04-24 14:27] LABS: BASO # 0.1 10^3/uL (0.0-0.2); BASO % 0.6 % (0.0-1.0); EOS # 0.3 10^3/uL (0.0-0.5); EOS % 4.1 % (0.0-3.0); HEMATOCRIT 35.6 % (36.0-47.0); HEMOGLOBIN 11.5 g/dl (12.0-15.5); LYMPH # 1.7 10^3/uL (1.5-5.0); LYMPH % 20.7 % (24.0-44.0); MEAN CORPUSCULAR HEMOGLOBIN 28.5 pg (27.0-33.0); MEAN CORPUSCULAR HGB CONC 32.3 g/dl (32.0-36.5); MEAN CORPUSCULAR VOLUME 88.3 fl (80.0-96.0); MONO # 0.6 10^3/uL (0.0-0.8); MONO % 6.7 % (2.0-8.0); NEUTROPHILS # 5.6 10^3/uL (1.5-8.5); NEUTROPHILS % 67.7 % (36.0-66.0); PLATELET COUNT, AUTOMATED 289 10^3/uL (150-450); RED BLOOD COUNT 4.03 10^6/uL (4.00-5.40); WHITE BLOOD COUNT 8.2 10^3/uL (4.0-10.0)
[2022-04-24 14:38] LABS: INR 0.95; PROTHROMBIN TIME 12.9 SECONDS (12.5-14.5)
[2022-04-24 14:40] LABS: PARTIAL THROMBOPLASTIN TIME 25.4 SECONDS (24.8-34.2)
[2022-04-24 14:45] LABS: D-DIMER QUANT 580.95 ng/ml (<500)
[2022-04-24 14:55] LABS: LIPASE 25 U/L (12-53)
[2022-04-24 14:58] LABS: CPK CREATINE PHOSPHOKINASE 154 U/L (34-145)
[2022-04-24 15:01] LABS: ALBUMIN 3.6 G/DL (3.2-5.2); ALKALINE PHOSPHATASE 73 U/L (46-116); ALT/SGPT 14 U/L (7.0-40); AST/SGOT 15 U/L (<34); BILIRUBIN,DIRECT < 0.1 MG/DL (<0.4); BILIRUBIN,TOTAL 0.3 MG/DL (0.3-1.2); BLOOD UREA NITROGEN 15 MG/DL (9-23); CALCIUM LEVEL 8.7 MG/DL (8.5-10.1); CARBON DIOXIDE LEVEL 26 MMOL/L (20-31); CHLORIDE LEVEL 109 MMOL/L (98-107); CK-MB VALUE MASS 1.9 NG/ML (<3.6); GLOMERULAR FILTRATION RATE > 60.0 (>60); GLUCOSE, FASTING 122 MG/DL (60-100); HCG, SERUM QUALITATIVE NEGATIVE (NEGATIVE); MB/CK RELATIVE INDEX 1.23 (< OR =4); SODIUM LEVEL 141 MMOL/L (136-145); THYROID STIMULATING HORMONE 1.432 uIU/ML (0.55-4.78); TOTAL PROTEIN 6.5 G/DL (5.7-8.2)
[2022-04-24] MEDS ORDERED: HYDR-3713 PO (18:03)
[2022-04-24] MEDS ORDERED: HOME MED LIST COMPLETE! XX SCH (18:05)
[2022-04-24 18:29] VITALS: BP 140/67
[2022-04-24] MEDS ORDERED: IPRATROPIUM 0.5MG/ALBUTEROL 2.5MG INH SOL UD 3ML (DUONEB) NEB PRN (18:35)
[2022-04-24] MEDS ORDERED: ALBUTEROL 90 MCG/ACT 8GM HFA INHALER INH PRN (18:35)
[2022-04-24 19:17] LABS: CK-MB VALUE MASS 1.4 NG/ML (<3.6)
[2022-04-24 19:18] LABS: CPK CREATINE PHOSPHOKINASE 127 U/L (34-145)
[2022-04-24 19:55] VITALS: BP 120/60
[2022-04-24] MEDS: ENOXAPARIN 60MG/0.6ML SYRINGE (J1650 PER 10MG) SC SCH (20:55)
[2022-04-24 23:34] VITALS: BP 127/58
[2022-04-24] MEDS: NORCO, ANEXSIA 5/325MG TABLET (HYDROcodone/ACETAMINOPHEN) PO PRN (23:57)
[2022-04-25 03:27] VITALS: BP 124/57
[2022-04-25 05:30] LABS: HEMATOCRIT 32.1 % (36.0-47.0); HEMOGLOBIN 10.1 g/dl (12.0-15.5); MEAN CORPUSCULAR HEMOGLOBIN 28.1 pg (27.0-33.0); MEAN CORPUSCULAR HGB CONC 31.5 g/dl (32.0-36.5); MEAN CORPUSCULAR VOLUME 89.2 fl (80.0-96.0); PLATELET COUNT, AUTOMATED 260 10^3/uL (150-450); WHITE BLOOD COUNT 7.5 10^3/uL (4.0-10.0)
[2022-04-25 06:08] LABS: ALBUMIN 3.1 G/DL (3.2-5.2); ALKALINE PHOSPHATASE 69 U/L (46-116); ALT/SGPT 12 U/L (7.0-40); AST/SGOT 12 U/L (<34); BILIRUBIN,TOTAL 0.3 MG/DL (0.3-1.2); BLOOD UREA NITROGEN 21 MG/DL (9-23); CALCIUM LEVEL 8.5 MG/DL (8.5-10.1); CARBON DIOXIDE LEVEL 24 MMOL/L (20-31); CHLORIDE LEVEL 107 MMOL/L (98-107); CREATININE FOR GFR 0.55 MG/DL (0.55-1.30); GLOMERULAR FILTRATION RATE > 60.0 (>60); GLUCOSE, FASTING 151 MG/DL (60-100); MAGNESIUM LEVEL 1.6 MG/DL (1.8-2.4); POTASSIUM SERUM 4.1 MMOL/L (3.5-5.1); SODIUM LEVEL 139 MMOL/L (136-145); TOTAL PROTEIN 5.7 G/DL (5.7-8.2)
[2022-04-25 07:42] VITALS: BP 137/64
[2022-04-25] MEDS: ACETAMINOPHEN 500 MG TAB PO PRN ×3 (07:51→21:15)
[2022-04-25] MEDS: ENOXAPARIN 60MG/0.6ML SYRINGE (J1650 PER 10MG) SC SCH ×2 (09:00→21:00)
[2022-04-25] MEDS: LACTOBACILLUS ACIDOPHILUS CAP (BACID) PO SCH ×2 (09:17→21:16)
[2022-04-25] MEDS: AUGMENTIN 875 MG TAB PO SCH ×2 (10:27→21:16)
[2022-04-25] MEDS: NORCO, ANEXSIA 5/325MG TABLET (HYDROcodone/ACETAMINOPHEN) PO PRN ×3 (10:34→23:07)
[2022-04-25 15:57] VITALS: BP 137/64
[2022-04-25 20:00] VITALS: BP 132/60
[2022-04-25 22:55] VITALS: BP 144/70
[2022-04-26 04:00] VITALS: BP 149/72
[2022-04-26] MEDS: ACETAMINOPHEN 500 MG TAB PO PRN ×2 (04:22→10:29)
[2022-04-26] MEDS: NORCO, ANEXSIA 5/325MG TABLET (HYDROcodone/ACETAMINOPHEN) PO PRN ×2 (05:12→13:04)
[2022-04-26 05:48] LABS: MEAN CORPUSCULAR HEMOGLOBIN 27.9 pg (27.0-33.0); MEAN CORPUSCULAR HGB CONC 31.3 g/dl (32.0-36.5); MEAN CORPUSCULAR VOLUME 89.4 fl (80.0-96.0); PLATELET COUNT, AUTOMATED 253 10^3/uL (150-450); RED BLOOD COUNT 3.58 10^6/uL (4.00-5.40); WHITE BLOOD COUNT 6.7 10^3/uL (4.0-10.0)
[2022-04-26 06:05] LABS: ALBUMIN 3.1 G/DL (3.2-5.2); ALKALINE PHOSPHATASE 62 U/L (46-116); ALT/SGPT 10 U/L (7.0-40); AST/SGOT 9 U/L (<34); BILIRUBIN,TOTAL 0.3 MG/DL (0.3-1.2); BLOOD UREA NITROGEN 17 MG/DL (9-23); CALCIUM LEVEL 8.3 MG/DL (8.5-10.1); CARBON DIOXIDE LEVEL 26 MMOL/L (20-31); CHLORIDE LEVEL 108 MMOL/L (98-107); CREATININE FOR GFR 0.42 MG/DL (0.55-1.30); GLOMERULAR FILTRATION RATE > 60.0 (>60); GLUCOSE, FASTING 124 MG/DL (60-100); MAGNESIUM LEVEL 1.5 MG/DL (1.8-2.4); POTASSIUM SERUM 4.3 MMOL/L (3.5-5.1); SODIUM LEVEL 139 MMOL/L (136-145); TOTAL PROTEIN 5.6 G/DL (5.7-8.2)
[2022-04-26] MEDS ORDERED: MAG SULF 1GM/100ML (MAG RUN) 1 GM in IV 1 EA IV ONE ×2 (07:00→07:05)
[2022-04-26 07:50] VITALS: BP 135/81
[2022-04-26] MEDS: LACTOBACILLUS ACIDOPHILUS CAP (BACID) PO SCH (08:10)
[2022-04-26] MEDS: AUGMENTIN 875 MG TAB PO SCH (08:10)
[2022-04-26] MEDS: ENOXAPARIN 60MG/0.6ML SYRINGE (J1650 PER 10MG) SC SCH (08:10)
[2022-04-26] MEDS ORDERED: AMOX875T2 PO (10:52)
[2022-04-26] MEDS ORDERED: PROB250C PO (10:55)
[2022-04-26 12:49] VITALS: BP 120/63
== END 2022-04-26 15:08 | disposition home or self-care (01) ==
LOC: M ED 13:13 → INTOOBSV 16:35 → M ED INP 16:35 → ENRESERV 17:10 → M PCU 18:22
PROVIDERS: ADMIT Internal Medicine; ATTEND Internal Medicine
DX: R07.89 Other chest pain (principal); K08.89 Other specified disorders of teeth and supporting structures; J45.909 Unspecified asthma, uncomplicated; E66.01 Morbid (severe) obesity due to excess calories; F17.210 Nicotine dependence, cigarettes, uncomplicated; Z91.040 Latex allergy status; Z91.041 Radiographic dye allergy status; Z88.5 Allergy status to narcotic agent; Z91.013 Allergy to seafood
CPT/HCPCS: 36415; 71045; 71046; 80048; 80053; 80076; 82550; 82553; 83605; 83690; 83735; 83880; 84145; 84443; 84703; 85025; 85027; 85379; 85610; 85652; 85730; 86140; 87040; 87486; 87581; 87633; 87798; 87880; 93005; 93041; 93306; 93970; 94640; 94760; 96361; 96374; 99285; J3475

== ENCOUNTER 2022-05-07 16:44 | Emergency (ER) | payer OTHER ==
[~2022-05-07] VITALS: Ht 154.9 cm; Wt 170.0 kg
[~2022-05-07 16:44] MED LIST changes: +HYDR-3713 PO; +PROB250C PO
[2022-05-07] MEDS ORDERED: AMOX875T2 PO (17:50)
[2022-05-07] MEDS ORDERED: AUGMENTIN 875 MG TAB PO ONE (18:10)
[2022-05-07 18:21] VITALS: BP 167/82
== END 2022-05-07 18:26 | disposition home or self-care (01) ==
LOC: M ED 16:44
DX: K04.7 Periapical abscess without sinus (principal); Z88.9 Allergy status to unspecified drugs, medicaments and biological substances; Z91.041 Radiographic dye allergy status; Z91.040 Latex allergy status; Z91.013 Allergy to seafood; Z79.52 Long term (current) use of systemic steroids; Z79.2 Long term (current) use of antibiotics; Z79.899 Other long term (current) drug therapy

== ENCOUNTER 2022-05-15 17:19 | Emergency (ER) | payer OTHER ==
[~2022-05-15] VITALS: Ht 154.9 cm; Wt 171.0 kg
[2022-05-15] MEDS ORDERED: IBUP80TA (17:46)
[2022-05-15] MEDS ORDERED: HYDR-3716 (17:46)
[2022-05-15] MEDS ORDERED: IBUP80TA PO (19:32)
[2022-05-15 19:40] VITALS: BP 149/63
== END 2022-05-15 19:40 | disposition home or self-care (01) ==
LOC: M ED 17:19
DX: M79.604 Pain in right leg (principal); L81.9 Disorder of pigmentation, unspecified; R22.41 Localized swelling, mass and lump, right lower limb; I10 Essential (primary) hypertension; J45.909 Unspecified asthma, uncomplicated; F41.9 Anxiety disorder, unspecified; F32.A Depression, unspecified; Z88.9 Allergy status to unspecified drugs, medicaments and biological substances; Z91.041 Radiographic dye allergy status; Z91.013 Allergy to seafood; Z91.018 Allergy to other foods; Z79.52 Long term (current) use of systemic steroids; Z79.2 Long term (current) use of antibiotics; Z79.899 Other long term (current) drug therapy

== ENCOUNTER 2022-05-19 16:41 | Emergency (ER) | payer OTHER ==
[~2022-05-19] VITALS: Ht 154.9 cm; Wt 171.0 kg
[~2022-05-19 16:41] MED LIST changes: +HYDR-3716; +IBUP80TA
[2022-05-19] MEDS ORDERED: KETOROLAC 60MG 2ML VIAL IM ONE (18:25)
[2022-05-19] MEDS ORDERED: LIDOCAINE VISCOUS 2% SOLN 15ML UDC SSP ONE (18:25)
[2022-05-19] MEDS ORDERED: CLINDAMYCIN 150MG CAPSULE PO ONE (18:25)
[2022-05-19] MEDS ORDERED: LIDO15SO PO (18:32)
[2022-05-19] MEDS ORDERED: CLIN150C17 PO (18:32)
[2022-05-19] MEDS ORDERED: PERC5TAB12 PO (18:32)
[2022-05-19] MEDS ORDERED: CLEO300C2 PO (18:32)
[2022-05-19] MEDS ORDERED: PRED20TA PO (18:32)
[2022-05-19 18:46] VITALS: BP 148/86
== END 2022-05-19 18:50 | disposition home or self-care (01) ==
LOC: M ED 16:41
DX: K04.7 Periapical abscess without sinus (principal); I10 Essential (primary) hypertension; J45.909 Unspecified asthma, uncomplicated; Z88.8 Allergy status to other drugs, medicaments and biological substances; Z91.041 Radiographic dye allergy status; Z91.040 Latex allergy status; Z91.013 Allergy to seafood; Z79.82 Long term (current) use of aspirin; Z79.52 Long term (current) use of systemic steroids; Z79.899 Other long term (current) drug therapy
CPT/HCPCS: 96372; 99283; J1885

== ENCOUNTER 2022-12-07 11:20 | Emergency (ER) | payer OTHER ==
[~2022-12-07] VITALS: Ht 154.9 cm; Wt 179.2 kg
[~2022-12-07 11:20] MED LIST changes: +CLEO300C2 PO; +CLIN150C17 PO; +LIDO15SO PO
[2022-12-07] MEDS ORDERED: KETOROLAC 60MG 2ML VIAL IM ONE (12:55)
[2022-12-07 14:35] VITALS: BP 139/94; TEMP 97.5; O2SAT 98
== END 2022-12-07 14:36 | disposition home or self-care (01) ==
LOC: M ED 11:20
DX: M75.31 Calcific tendinitis of right shoulder (principal); M75.32 Calcific tendinitis of left shoulder; J45.909 Unspecified asthma, uncomplicated; F17.200 Nicotine dependence, unspecified, uncomplicated; Z88.8 Allergy status to other drugs, medicaments and biological substances; Z91.013 Allergy to seafood; Z91.041 Radiographic dye allergy status; Z91.040 Latex allergy status; Z79.52 Long term (current) use of systemic steroids

== ENCOUNTER 2023-02-06 15:59 | Emergency (ER) | payer OTHER ==
[2023-02-06 17:06] LABS: BASO # 0.1 10^3/uL (0.0-0.2); BASO % 0.6 % (0.0-1.0); EOS # 0.4 10^3/uL (0.0-0.5); HEMATOCRIT 33.3 % (36.0-47.0); HEMOGLOBIN 10.2 g/dl (12.0-15.5); LIPASE 23 U/L (12-53); LYMPH # 1.9 10^3/uL (1.5-5.0); LYMPH % 21.3 % (24.0-44.0); MEAN CORPUSCULAR HEMOGLOBIN 25.4 pg (27.0-33.0); MEAN CORPUSCULAR HGB CONC 30.6 g/dl (32.0-36.5); MEAN CORPUSCULAR VOLUME 82.8 fl (80.0-96.0); MONO # 0.6 10^3/uL (0.0-0.8); MONO % 6.2 % (2.0-8.0); NEUTROPHILS # 6.1 10^3/uL (1.5-8.5); NEUTROPHILS % 67.7 % (36.0-66.0); PLATELET COUNT, AUTOMATED 331 10^3/uL (150-450); RED BLOOD COUNT 4.02 10^6/uL (4.00-5.40)
[2023-02-06 17:09] LABS: ALBUMIN 3.5 G/DL (3.2-5.2); ALKALINE PHOSPHATASE 67 U/L (46-116); ALT/SGPT 14 U/L (7.0-40); AST/SGOT 10 U/L (<34); BILIRUBIN,DIRECT < 0.1 MG/DL (<0.4); BILIRUBIN,TOTAL 0.3 MG/DL (0.3-1.2); BLOOD UREA NITROGEN 16 MG/DL (9-23); CALCIUM LEVEL 8.8 MG/DL (8.5-10.1); CARBON DIOXIDE LEVEL 27 MMOL/L (20-31); CHLORIDE LEVEL 106 MMOL/L (98-107); CK-MB VALUE MASS < 1.0 NG/ML (<3.6); CPK CREATINE PHOSPHOKINASE 62 U/L (34-145); CREATININE FOR GFR 0.56 MG/DL (0.55-1.30); GLOMERULAR FILTRATION RATE > 60.0 (>60); GLUCOSE, FASTING 141 MG/DL (60-100); MB/CK RELATIVE INDEX 1.61 (< OR =4); POTASSIUM SERUM 3.7 MMOL/L (3.5-5.1); SODIUM LEVEL 139 MMOL/L (136-145); TOTAL PROTEIN 6.6 G/DL (5.7-8.2)
[2023-02-06] MEDS ORDERED: KETOROLAC 30 MG/ML 1ML VIAL IV ONE (17:10)
[2023-02-06] MEDS ORDERED: ONDANSETRON 4MG 2ML VIAL IV ONE (17:10)
[2023-02-06 17:14] LABS: RSV AMPLIFICATION NEGATIVE (NEGATIVE)
[2023-02-06 17:25] LABS: INR 1.11; PROTHROMBIN TIME 13.9 SECONDS (12.5-14.5)
[2023-02-06 17:28] LABS: D-DIMER QUANT 0.35 ug/mL (<0.5)
[2023-02-06 17:33] LABS: HCG, SERUM QUALITATIVE NEGATIVE (NEGATIVE)
[2023-02-06 19:02] LABS: CK-MB VALUE MASS < 1.0 NG/ML (<3.6)
[2023-02-06 19:05] LABS: CPK CREATINE PHOSPHOKINASE 60 U/L (34-145); MB/CK RELATIVE INDEX 1.66 (< OR =4)
[2023-02-06 19:35] VITALS: BP 128/65; TEMP 98.2; O2SAT 97
== END 2023-02-06 19:37 | disposition home or self-care (01) ==
LOC: M ED 15:59
DX: R07.9 Chest pain, unspecified (principal); J45.909 Unspecified asthma, uncomplicated; F41.9 Anxiety disorder, unspecified; F41.0 Panic disorder [episodic paroxysmal anxiety]; Z87.891 Personal history of nicotine dependence; Z88.8 Allergy status to other drugs, medicaments and biological substances; Z91.013 Allergy to seafood; Z91.041 Radiographic dye allergy status; Z91.040 Latex allergy status; Z91.018 Allergy to other foods; Z79.52 Long term (current) use of systemic steroids

== ENCOUNTER 2023-03-31 12:42 | Emergency (ER) | payer OTHER ==
[~2023-03-31] VITALS: Ht 154.9 cm; Wt 185.4 kg
[~2023-03-31 12:42] MED LIST changes: -DOCU-153 PO; +STOO100C30 PO
[2023-03-31 13:57] LABS: BASO % 0.5 % (0.0-1.0); EOS # 0.3 10^3/uL (0.0-0.5); EOS % 3.3 % (0.0-3.0); HEMATOCRIT 32.6 % (36.0-47.0); HEMOGLOBIN 10.2 g/dl (12.0-15.5); LYMPH # 2.2 10^3/uL (1.5-5.0); LYMPH % 24.8 % (24.0-44.0); MEAN CORPUSCULAR HEMOGLOBIN 25.6 pg (27.0-33.0); MEAN CORPUSCULAR HGB CONC 31.3 g/dl (32.0-36.5); MEAN CORPUSCULAR VOLUME 81.9 fl (80.0-96.0); MONO # 0.5 10^3/uL (0.0-0.8); NEUTROPHILS # 5.7 10^3/uL (1.5-8.5); NEUTROPHILS % 65.3 % (36.0-66.0); PLATELET COUNT, AUTOMATED 297 10^3/uL (150-450); RED BLOOD COUNT 3.98 10^6/uL (4.00-5.40); WHITE BLOOD COUNT 8.8 10^3/uL (4.0-10.0)
[2023-03-31 14:10] LABS: PARTIAL THROMBOPLASTIN TIME 23.8 SECONDS (24.8-34.2)
[2023-03-31 14:22] LABS: LIPASE 24 U/L (12-53)
[2023-03-31 14:23] LABS: AMYLASE 39 U/L (30-118)
[2023-03-31 14:24] LABS: ALBUMIN 3.2 G/DL (3.2-5.2); ALKALINE PHOSPHATASE 68 U/L (46-116); ALT/SGPT 14 U/L (7.0-40); AST/SGOT 8 U/L (<34); BILIRUBIN,DIRECT < 0.1 MG/DL (<0.4); BILIRUBIN,TOTAL 0.3 MG/DL (0.3-1.2); BLOOD UREA NITROGEN 19 MG/DL (9-23); CALCIUM LEVEL 8.5 MG/DL (8.5-10.1); CARBON DIOXIDE LEVEL 30 MMOL/L (20-31); CHLORIDE LEVEL 106 MMOL/L (98-107); GLOMERULAR FILTRATION RATE > 60.0 (>60); GLUCOSE, FASTING 178 MG/DL (60-100); POTASSIUM SERUM 4.2 MMOL/L (3.5-5.1); SODIUM LEVEL 141 MMOL/L (136-145); TOTAL PROTEIN 6.4 G/DL (5.7-8.2)
[2023-03-31 14:25] LABS: INR 1.09; PROTHROMBIN TIME 13.8 SECONDS (12.5-14.5)
[2023-03-31 14:56] VITALS: TEMP 97.1; O2SAT 94
[2023-03-31] MEDS ORDERED: OMEP-173 PO (15:03)
[2023-03-31] MEDS ORDERED: CARA1TAB6 PO (15:03)
[2023-03-31 15:21] VITALS: BP 142/74
== END 2023-03-31 15:23 | disposition home or self-care (01) ==
LOC: M ED 12:57
DX: R10.13 Epigastric pain (principal); K21.9 Gastro-esophageal reflux disease without esophagitis; I10 Essential (primary) hypertension; J45.909 Unspecified asthma, uncomplicated; F41.9 Anxiety disorder, unspecified; Z91.013 Allergy to seafood; Z91.041 Radiographic dye allergy status; Z91.040 Latex allergy status; Z88.8 Allergy status to other drugs, medicaments and biological substances; Z79.52 Long term (current) use of systemic steroids; Z79.899 Other long term (current) drug therapy

== ENCOUNTER 2023-08-29 11:48 | Emergency (ER) | payer OTHER ==
[~2023-08-29] VITALS: Ht 154.9 cm; Wt 182.6 kg
[~2023-08-29 11:48] MED LIST changes: +CARA1TAB6 PO; -LIDO15SO PO; +LIDO15SO8 PO; +OMEP-173 PO
[2023-08-29 13:40] LABS: RSV AMPLIFICATION NEGATIVE (NEGATIVE)
[2023-08-29] MEDS: ACETAMINOPHEN 500 MG TAB PO ONE (14:50)
[2023-08-29 18:03] VITALS: BP 131/80; TEMP 97.7
[2023-08-29 18:05] VITALS: O2SAT 95
[2023-08-29] MEDS ORDERED: PRED20TA PO (18:32)
== END 2023-08-29 18:44 | disposition home or self-care (01) ==
LOC: M ED 11:48
DX: U07.1 COVID-19 (principal); I10 Essential (primary) hypertension; J45.909 Unspecified asthma, uncomplicated; Z91.041 Radiographic dye allergy status; Z88.8 Allergy status to other drugs, medicaments and biological substances; Z91.040 Latex allergy status; Z91.013 Allergy to seafood

== ENCOUNTER 2023-09-21 18:25 | Emergency (ER) | payer OTHER ==
[~2023-09-21] VITALS: Ht 154.9 cm; Wt 183.1 kg
[2023-09-21 19:33] LABS: BASO % 0.5 % (0.0-1.0); EOS # 0.3 10^3/uL (0.0-0.5); EOS % 3.7 % (0.0-3.0); HEMATOCRIT 35.3 % (36.0-47.0); HEMOGLOBIN 11.3 g/dl (12.0-15.5); LYMPH # 1.9 10^3/uL (1.5-5.0); LYMPH % 22.2 % (24.0-44.0); MEAN CORPUSCULAR HEMOGLOBIN 27.2 pg (27.0-33.0); MEAN CORPUSCULAR VOLUME 85.1 fl (80.0-96.0); MONO # 0.5 10^3/uL (0.0-0.8); MONO % 6.3 % (2.0-8.0); NEUTROPHILS # 5.8 10^3/uL (1.5-8.5); NEUTROPHILS % 67.1 % (36.0-66.0); PLATELET COUNT, AUTOMATED 269 10^3/uL (150-450); RED BLOOD COUNT 4.15 10^6/uL (4.00-5.40); WHITE BLOOD COUNT 8.6 10^3/uL (4.0-10.0)
[2023-09-21 20:00] LABS: HCG, SERUM QUANTITATIVE < 2.6 MIU/ML (<4.2)
[2023-09-21 20:02] LABS: ALBUMIN 3.4 G/DL (3.2-5.2); ALKALINE PHOSPHATASE 74 U/L (46-116); ALT/SGPT 14 U/L (7.0-40); AST/SGOT < 8 U/L (<34); BILIRUBIN,TOTAL 0.3 MG/DL (0.3-1.2); BLOOD UREA NITROGEN 16 MG/DL (9-23); CALCIUM LEVEL 9.2 MG/DL (8.5-10.1); CARBON DIOXIDE LEVEL 27 MMOL/L (20-31); CHLORIDE LEVEL 106 MMOL/L (98-107); CREATININE FOR GFR 0.46 MG/DL (0.55-1.30); GLOMERULAR FILTRATION RATE > 60.0 (>60); GLUCOSE, FASTING 195 MG/DL (60-100); POTASSIUM SERUM 3.6 MMOL/L (3.5-5.1); SODIUM LEVEL 140 MMOL/L (136-145); TOTAL PROTEIN 6.8 G/DL (5.7-8.2)
[2023-09-21 21:10] VITALS: BP 129/77; TEMP 97.2; O2SAT 96
== END 2023-09-21 21:18 | disposition home or self-care (01) ==
LOC: M ED 18:25
DX: M25.511 Pain in right shoulder (principal); M25.512 Pain in left shoulder; N92.6 Irregular menstruation, unspecified; J45.909 Unspecified asthma, uncomplicated; Z91.041 Radiographic dye allergy status; Z91.018 Allergy to other foods; Z91.013 Allergy to seafood; Z91.040 Latex allergy status; Z88.8 Allergy status to other drugs, medicaments and biological substances; Z79.52 Long term (current) use of systemic steroids; Z79.899 Other long term (current) drug therapy

== ENCOUNTER → 2023-09-23 | Outpatient (CLI) | payer OTHER | LOC: M LAB 12:21 | PROVIDERS: ATTEND Emergency Medicine | DX: N92.6 Irregular menstruation, unspecified (principal) ==

== ENCOUNTER 2023-10-05 16:22 | Emergency (ER) | payer OTHER ==
[~2023-10-05] VITALS: Ht 154.9 cm; Wt 183.4 kg
[2023-10-05] MEDS: ACETAMINOPHEN 500 MG TAB PO ONE (19:04)
[2023-10-05] MEDS ORDERED: IBUP-1022 PO (21:07)
[2023-10-05 21:29] VITALS: BP 141/80; TEMP 97.9; O2SAT 96
== END 2023-10-05 21:30 | disposition home or self-care (01) ==
LOC: M ED 16:22
DX: M17.12 Unilateral primary osteoarthritis, left knee (principal); I10 Essential (primary) hypertension; J45.909 Unspecified asthma, uncomplicated; K64.9 Unspecified hemorrhoids; F17.200 Nicotine dependence, unspecified, uncomplicated; Z91.041 Radiographic dye allergy status; Z88.8 Allergy status to other drugs, medicaments and biological substances; Z91.013 Allergy to seafood; Z91.018 Allergy to other foods; Z79.52 Long term (current) use of systemic steroids; Z79.1 Long term (current) use of non-steroidal anti-inflammatories (NSAID)

== ENCOUNTER → 2023-10-06 | Outpatient (REF) | payer OTHER | LOC: M SFHCPLAZ 15:00 | PROVIDERS: ATTEND Internal Medicine Hematology | DX: Z13.1 Encounter for screening for diabetes mellitus (principal); E66.01 Morbid (severe) obesity due to excess calories; Z13.220 Encounter for screening for lipoid disorders; R53.83 Other fatigue; D64.9 Anemia, unspecified; M25.562 Pain in left knee ==

== ENCOUNTER → 2023-10-19 | Outpatient (CLI) | payer OTHER ==
[2023-10-19 12:31] LABS: BASO % 0.3 % (0.0-1.0); EOS # 0.3 10^3/uL (0.0-0.5); HEMATOCRIT 34.5 % (36.0-47.0); HEMOGLOBIN 10.8 g/dl (12.0-15.5); LYMPH # 1.7 10^3/uL (1.5-5.0); LYMPH % 27.1 % (24.0-44.0); MEAN CORPUSCULAR HEMOGLOBIN 27.3 pg (27.0-33.0); MEAN CORPUSCULAR HGB CONC 31.3 g/dl (32.0-36.5); MEAN CORPUSCULAR VOLUME 87.1 fl (80.0-96.0); MONO # 0.4 10^3/uL (0.0-0.8); MONO % 6.3 % (2.0-8.0); NEUTROPHILS # 3.9 10^3/uL (1.5-8.5); PLATELET COUNT, AUTOMATED 264 10^3/uL (150-450); RED BLOOD COUNT 3.96 10^6/uL (4.00-5.40); WHITE BLOOD COUNT 6.2 10^3/uL (4.0-10.0)
[2023-10-19 12:50] LABS: ERYTHROCYTE SEDIMENTATION RATE 38 mm/hr (0-20)
[2023-10-19 13:03] LABS: URIC ACID 5.6 MG/DL (3.1-7.8)
[2023-10-19 13:04] LABS: CORTISOL AM 5.6 UG/DL (4.3-22.4)
[2023-10-19 13:06] LABS: ALBUMIN 3.3 G/DL (3.2-5.2); ALKALINE PHOSPHATASE 64 U/L (46-116); ALT/SGPT 15 U/L (7.0-40); AST/SGOT 11 U/L (<34); BILIRUBIN,TOTAL 0.4 MG/DL (0.3-1.2); BLOOD UREA NITROGEN 14 MG/DL (9-23); CALCIUM LEVEL 8.9 MG/DL (8.5-10.1); CARBON DIOXIDE LEVEL 26 MMOL/L (20-31); CHLORIDE LEVEL 109 MMOL/L (98-107); CHOLESTEROL LEVEL 186 MG/DL (<200); CHOLESTEROL RISK RATIO 5.25 (<5); CREATININE FOR GFR 0.52 MG/DL (0.55-1.30); GLOMERULAR FILTRATION RATE > 60.0 (>60); GLUCOSE, FASTING 165 MG/DL (60-100); HDL CHOLESTEROL 35.4 MG/DL (>40); LDL CHOLESTEROL 128.2 MG/DL (<100); NON-HDL-C 150.6 MG/DL; POTASSIUM SERUM 4.3 MMOL/L (3.5-5.1); SODIUM LEVEL 138 MMOL/L (136-145); TOTAL PROTEIN 6.7 G/DL (5.7-8.2); TRIGLYCERIDES LEVEL 112 MG/DL (<150)
[2023-10-19 13:08] LABS: FREE T4 1.29 NG/DL (0.89-1.76); THYROID STIMULATING HORMONE 1.054 uIU/ML (0.55-4.78); TOTAL 25(OH) VITAMIN D 13.2 NG/ML (20.0-100.0)
[2023-10-19 13:31] LABS: HEMOGLOBIN A1c 7.6 % (4.0-6.0)
[2023-10-21 12:47] LABS: ANA SCREEN, IFA NEGATIVE (NEGATIVE)
[2023-11-01 19:13] LABS: INSULIN FREE 22.5 uIU/mL (1.5-14.9); INSULIN TOTAL2 31.9 uIU/mL
== END ==
LOC: M LAB 11:11
DX: Z13.1 Encounter for screening for diabetes mellitus (principal); E66.01 Morbid (severe) obesity due to excess calories; M54.16 Radiculopathy, lumbar region; R53.83 Other fatigue; D64.9 Anemia, unspecified; Z13.220 Encounter for screening for lipoid disorders; M25.562 Pain in left knee

== ENCOUNTER → 2023-11-17 | Outpatient (REF) | payer OTHER | LOC: M SFHCPLAZ 15:07 | DX: R07.89 Other chest pain (principal); D64.9 Anemia, unspecified; Z79.899 Other long term (current) drug therapy ==

== ENCOUNTER 2024-01-09 10:09 | Observation (INO) | payer OTHER ==
[~2024-01-09] VITALS: Ht 154.9 cm; Wt 169.1 kg
[2024-01-09] MEDS ORDERED: AMOX875T2 PO (10:15)
[2024-01-09 11:57] LABS: BASO % 0.3 % (0.0-1.0); EOS # 0.5 10^3/uL (0.0-0.5); HEMATOCRIT 34.6 % (36.0-47.0); HEMOGLOBIN 11.1 g/dl (12.0-15.5); LYMPH # 1.4 10^3/uL (1.5-5.0); MEAN CORPUSCULAR HEMOGLOBIN 27.5 pg (27.0-33.0); MEAN CORPUSCULAR HGB CONC 32.1 g/dl (32.0-36.5); MEAN CORPUSCULAR VOLUME 85.6 fl (80.0-96.0); MONO # 0.9 10^3/uL (0.0-0.8); MONO % 5.6 % (2.0-8.0); NEUTROPHILS # 12.3 10^3/uL (1.5-8.5); NEUTROPHILS % 81.7 % (36.0-66.0); PLATELET COUNT, AUTOMATED 290 10^3/uL (150-450); RED BLOOD COUNT 4.04 10^6/uL (4.00-5.40); WHITE BLOOD COUNT 15.1 10^3/uL (4.0-10.0)
[2024-01-09] MEDS ORDERED: AMPICILLIN SOD/SULBACTAM SOD 3 GM in DEXTROSE 5% (D5W) ADV/MINI-BAG 50 ML IV ONE ×2 (12:10→12:25)
[2024-01-09 12:33] LABS: BLOOD UREA NITROGEN 12 MG/DL (9-23); CALCIUM LEVEL 9.1 MG/DL (8.5-10.1); CARBON DIOXIDE LEVEL 25 MMOL/L (20-31); CHLORIDE LEVEL 106 MMOL/L (98-107); CREATININE FOR GFR 0.46 MG/DL (0.55-1.30); GLOMERULAR FILTRATION RATE > 60.0 (>60); GLUCOSE, FASTING 128 MG/DL (60-100); POTASSIUM SERUM 4.3 MMOL/L (3.5-5.1); SODIUM LEVEL 138 MMOL/L (136-145)
[2024-01-09 12:35] LABS: HCG, SERUM QUALITATIVE NEGATIVE (NEGATIVE)
[2024-01-09] MEDS: AMPICILLIN SOD/SULBACTAM SOD 3 GM in SODIUM CHLORIDE 0.9% 100ML ADD 100 ML IV ONE (12:35)
[2024-01-09] MEDS: KETOROLAC 30 MG/ML 1ML VIAL IV ONE (12:36)
[2024-01-09] MEDS: dexAMETHasone 20MG/5ML VIAL IV ONE (12:37)
[2024-01-09] MEDS ORDERED: LORazepam 2 MG/ML 1ML VIAL IV STA (13:03)
[2024-01-09] MEDS ORDERED: MORPHINE 2 MG/ML 1ML VIAL IV PRN (15:35)
[2024-01-09] MEDS ORDERED: HOME MED LIST COMPLETE! XX SCH (16:05)
[2024-01-09] MEDS ORDERED: CEPACOL LOZENGE PO PRN (16:15)
[2024-01-09] MEDS ORDERED: AMPICILLIN SOD/SULBACTAM SOD 3 GM in DEXTROSE 5% (D5W) ADV/MINI-BAG 50 ML IV SCH (16:15)
[2024-01-09] MEDS ORDERED: ALBUTEROL 90 MCG/ACT 8GM HFA INHALER INH PRN (16:15)
[2024-01-09 17:18] LABS: MONO SCRN NEGATIVE (NEGATIVE)
[2024-01-09 18:30] LABS: PROCALCITONIN 0.04 ng/ml
[2024-01-09] MEDS: AMPICILLIN SOD/SULBACTAM SOD 3 GM in SODIUM CHLORIDE 0.9% 100ML ADD 100 ML IV SCH (19:46)
[2024-01-09] MEDS: KETOROLAC 30 MG/ML 1ML VIAL IV PRN (19:47)
[2024-01-09 20:00] VITALS: BP 126/66; TEMP 98.2; O2SAT 95
[2024-01-09] MEDS: HEPARIN SOD (PORCINE) 5000UNITS/ML 1ML VIAL/SYRINGE SC SCH (21:49)
[2024-01-10 01:30] VITALS: BP 134/67; TEMP 97.2; O2SAT 94
[2024-01-10 02:30] VITALS: O2SAT 93
[2024-01-10 06:51] LABS: HEMATOCRIT 33.8 % (36.0-47.0); HEMOGLOBIN 10.5 g/dl (12.0-15.5); MEAN CORPUSCULAR HGB CONC 31.1 g/dl (32.0-36.5); MEAN CORPUSCULAR VOLUME 86.9 fl (80.0-96.0); PLATELET COUNT, AUTOMATED 303 10^3/uL (150-450); RED BLOOD COUNT 3.89 10^6/uL (4.00-5.40)
[2024-01-10 07:23] VITALS: O2SAT 97
[2024-01-10 08:00] VITALS: BP 131/61; TEMP 97.6; O2SAT 97
[2024-01-10 10:54] LABS: PROCALCITONIN <0.04 ng/ml
[2024-01-10] MEDS ORDERED: KETOROLAC 30 MG/ML 1ML VIAL IV PRN (12:45)
[2024-01-10 14:28] LABS: BLOOD UREA NITROGEN 24 MG/DL (9-23); CALCIUM LEVEL 9.7 MG/DL (8.5-10.1); CARBON DIOXIDE LEVEL 24 MMOL/L (20-31); CHLORIDE LEVEL 108 MMOL/L (98-107); CREATININE FOR GFR 0.62 MG/DL (0.55-1.30); GLOMERULAR FILTRATION RATE > 60.0 (>60); GLUCOSE, FASTING 253 MG/DL (60-100); POTASSIUM SERUM 3.9 MMOL/L (3.5-5.1); SODIUM LEVEL 141 MMOL/L (136-145)
[2024-01-10 16:00] VITALS: BP 142/72; TEMP 98.5; O2SAT 64
[2024-01-10 20:45] VITALS: BP 142/65; TEMP 97.4; O2SAT 99
[2024-01-10] MEDS: AUGMENTIN 875 MG TAB PO SCH (20:59)
[2024-01-11 03:00] VITALS: BP 135/66; TEMP 96.5; O2SAT 99
[2024-01-11 07:26] VITALS: BP 148/67; TEMP 97.3; O2SAT 100
[2024-01-11] MEDS ORDERED: IBUP-1114 PO (10:42)
== END 2024-01-11 11:41 | disposition home or self-care (01) ==
LOC: M ED 10:09 → M ED INP 16:15 → M PED 17:34
PROVIDERS: ADMIT Internal Medicine; ATTEND Internal Medicine
DX: J03.90 Acute tonsillitis, unspecified (principal); G47.36 Sleep related hypoventilation in conditions classified elsewhere; E66.01 Morbid (severe) obesity due to excess calories; G43.909 Migraine, unspecified, not intractable, without status migrainosus; Z79.51 Long term (current) use of inhaled steroids; Z79.899 Other long term (current) drug therapy; Z91.041 Radiographic dye allergy status; Z91.040 Latex allergy status; Z91.013 Allergy to seafood; Z91.018 Allergy to other foods; Z88.5 Allergy status to narcotic agent
CPT/HCPCS: 36415; 70490; 80048; 84145; 84703; 85025; 85027; 86140; 86308; 87635; 96365; 96366; 96375; 96376; 99284; J0295; J1100; J1885

== ENCOUNTER 2024-01-16 09:27 | Observation (INO) | payer OTHER ==
[~2024-01-16] VITALS: Ht 154.9 cm; Wt 174.2 kg
[~2024-01-16 09:27] MED LIST changes: +IBUP-1114 PO
[2024-01-16 10:36] LABS: BASO % 0.3 % (0.0-1.0); EOS # 0.3 10^3/uL (0.0-0.5); HEMATOCRIT 34.8 % (36.0-47.0); HEMOGLOBIN 10.9 g/dl (12.0-15.5); LYMPH # 1.5 10^3/uL (1.5-5.0); LYMPH % 10.1 % (24.0-44.0); MEAN CORPUSCULAR HGB CONC 31.3 g/dl (32.0-36.5); MEAN CORPUSCULAR VOLUME 86.4 fl (80.0-96.0); MONO # 0.8 10^3/uL (0.0-0.8); MONO % 5.2 % (2.0-8.0); NEUTROPHILS % 81.8 % (36.0-66.0); PLATELET COUNT, AUTOMATED 303 10^3/uL (150-450); RED BLOOD COUNT 4.03 10^6/uL (4.00-5.40); WHITE BLOOD COUNT 14.7 10^3/uL (4.0-10.0)
[2024-01-16 10:57] LABS: BLOOD UREA NITROGEN 17 MG/DL (9-23); CALCIUM LEVEL 9.3 MG/DL (8.5-10.1); CARBON DIOXIDE LEVEL 28 MMOL/L (20-31); CHLORIDE LEVEL 104 MMOL/L (98-107); CREATININE FOR GFR 0.53 MG/DL (0.55-1.30); GLOMERULAR FILTRATION RATE > 60.0 (>60); GLUCOSE, FASTING 172 MG/DL (60-100); POTASSIUM SERUM 4.3 MMOL/L (3.5-5.1); SODIUM LEVEL 138 MMOL/L (136-145)
[2024-01-16 11:07] LABS: HCG, SERUM QUALITATIVE NEGATIVE (NEGATIVE)
[2024-01-16] MEDS: KETOROLAC 30 MG/ML 1ML VIAL IV ONE (11:18)
[2024-01-16] MEDS: CLINDAMYCIN 150MG CAPSULE PO ONE (13:35)
[2024-01-16] MEDS: MAGIC MOUTHWASH 5ML ORAL SYRINGE SS ONE (13:50)
[2024-01-16] MEDS ORDERED: IBUP-1720 PO (14:43)
[2024-01-16] MEDS ORDERED: ACET1TAB55 PO (14:43)
[2024-01-16] MEDS ORDERED: HOME MED LIST COMPLETE! XX SCH (14:45)
[2024-01-16] MEDS ORDERED: ALBUTEROL 90 MCG/ACT 8GM HFA INHALER INH PRN (15:25)
[2024-01-16] MEDS ORDERED: GLUCOSE 4 GM CHEW PO PRN (15:35)
[2024-01-16] MEDS ORDERED: GLUCAGON INJ 1MG VIAL SC PRN (15:35)
[2024-01-16] MEDS ORDERED: DEXTROSE 50% 50ML SYRINGE IV PRN (15:35)
[2024-01-16] MEDS ORDERED: MORPHINE 2 MG/ML 1ML VIAL IV PRN (15:50)
[2024-01-16] MEDS ORDERED: INSULIN LISPRO (NovoLOG) PER UNIT SC SCH ×2 (17:30→21:00)
[2024-01-16] MEDS: LACTOBACILLUS ACIDOPHILUS CAP (BACID) PO SCH (17:59)
[2024-01-16 18:00] LABS: INR 1.01; PROTHROMBIN TIME 13.6 SECONDS (12.5-14.5)
[2024-01-16 18:09] LABS: CHOLESTEROL RISK RATIO 4.59 (<5); HDL CHOLESTEROL 51.8 MG/DL (>40); NON-HDL-C 186.2 MG/DL
[2024-01-16] MEDS: AMPICILLIN SOD/SULBACTAM SOD 1.5 GM in DEXTROSE 5% (D5W) ADV/MINI-BAG 50 ML IV SCH (18:26)
[2024-01-16] MEDS: INSULIN LISPRO (NovoLOG) PER UNIT SC SCH (18:26)
[2024-01-16 18:55] VITALS: BP 145/72; TEMP 97.7; O2SAT 94
[2024-01-17] VITALS: BP 142/73; TEMP 97.7; O2SAT 92
[2024-01-17] MEDS: KETOROLAC 30 MG/ML 1ML VIAL IV ONE (00:27)
[2024-01-17 03:26] VITALS: BP 134/67; TEMP 98.1; O2SAT 93
[2024-01-17 05:49] LABS: HEMATOCRIT 33.9 % (36.0-47.0); HEMOGLOBIN 10.8 g/dl (12.0-15.5); MEAN CORPUSCULAR HEMOGLOBIN 27.4 pg (27.0-33.0); MEAN CORPUSCULAR HGB CONC 31.9 g/dl (32.0-36.5); PLATELET COUNT, AUTOMATED 324 10^3/uL (150-450); RED BLOOD COUNT 3.94 10^6/uL (4.00-5.40)
[2024-01-17 06:33] LABS: ALKALINE PHOSPHATASE 74 U/L (35-104); ALT/SGPT 21 U/L (7.0-40); AST/SGOT < 8 U/L (<34); BILIRUBIN,TOTAL 0.4 MG/DL (0.3-1.2); BLOOD UREA NITROGEN 25 MG/DL (9-23); CALCIUM LEVEL 9.9 MG/DL (8.5-10.1); CARBON DIOXIDE LEVEL 28 MMOL/L (20-31); CHLORIDE LEVEL 104 MMOL/L (98-107); CREATININE FOR GFR 0.61 MG/DL (0.55-1.30); GLOMERULAR FILTRATION RATE > 60.0 (>60); GLUCOSE, FASTING 253 MG/DL (60-100); POTASSIUM SERUM 4.3 MMOL/L (3.5-5.1); SODIUM LEVEL 139 MMOL/L (136-145); TOTAL PROTEIN 6.7 G/DL (5.7-8.2)
[2024-01-17] MEDS: ENOXAPARIN 40MG/0.4ML SYRINGE (J1650 PER 10MG) SC SCH (08:14)
[2024-01-17] MEDS: PANTOPRAZOLE 40MG VIAL IV SCH (08:14)
[2024-01-17] MEDS: KETOROLAC 30 MG/ML 1ML VIAL IV PRN (09:44)
[2024-01-17] MEDS: ACETAMINOPHEN 325 MG TAB PO PRN (11:04)
[2024-01-17 12:00] VITALS: BP 180/88; TEMP 97.7; O2SAT 97
[2024-01-17] MEDS: AMPICILLIN SOD/SULBACTAM SOD 3 GM in SODIUM CHLORIDE 0.9% 100ML ADD 100 ML IV SCH (12:33)
[2024-01-17 15:53] LABS: MONO REFLEX EBV COMP NEGATIVE (NEGATIVE)
[2024-01-17] MEDS: INSULIN LISPRO (NovoLOG) PER UNIT SC SCH ×2 (17:13→20:40)
[2024-01-17 20:28] VITALS: BP 142/67; TEMP 97.7; O2SAT 96
[2024-01-18 04:00] VITALS: BP 140/70; TEMP 97.3; O2SAT 96
[2024-01-18 06:09] LABS: BASO % 0.1 % (0.0-1.0); HEMATOCRIT 33.1 % (36.0-47.0); HEMOGLOBIN 10.2 g/dl (12.0-15.5); LYMPH # 0.9 10^3/uL (1.5-5.0); LYMPH % 5.5 % (24.0-44.0); MEAN CORPUSCULAR HEMOGLOBIN 26.8 pg (27.0-33.0); MEAN CORPUSCULAR HGB CONC 30.8 g/dl (32.0-36.5); MEAN CORPUSCULAR VOLUME 87.1 fl (80.0-96.0); MONO # 0.6 10^3/uL (0.0-0.8); MONO % 3.3 % (2.0-8.0); NEUTROPHILS # 14.9 10^3/uL (1.5-8.5); PLATELET COUNT, AUTOMATED 321 10^3/uL (150-450); WHITE BLOOD COUNT 16.6 10^3/uL (4.0-10.0)
[2024-01-18 06:37] LABS: BLOOD UREA NITROGEN 24 MG/DL (9-23); CALCIUM LEVEL 9.6 MG/DL (8.5-10.1); CARBON DIOXIDE LEVEL 26 MMOL/L (20-31); CHLORIDE LEVEL 104 MMOL/L (98-107); CREATININE FOR GFR 0.48 MG/DL (0.55-1.30); GLOMERULAR FILTRATION RATE > 60.0 (>60); GLUCOSE, FASTING 319 MG/DL (60-100); POTASSIUM SERUM 4.4 MMOL/L (3.5-5.1); SODIUM LEVEL 138 MMOL/L (136-145)
[2024-01-18 07:30] VITALS: BP 132/69; TEMP 97.3
[2024-01-18] MEDS ORDERED: ATORVASTATIN 20 MG TAB PO SCH (09:00)
[2024-01-18] MEDS ORDERED: METF-839 PO (10:07)
[2024-01-18] MEDS ORDERED: AMOX500T PO (10:07)
[2024-01-18] MEDS ORDERED: DEXA2TA PO (10:07)
[2024-01-18] MEDS ORDERED: BLOOKIT21 XX (10:11)
[2024-01-18] MEDS ORDERED: ALCOPAD25 TOP (10:11)
[2024-01-18] MEDS ORDERED: GLUC1TES2 XX (10:11)
[2024-01-18] MEDS ORDERED: PEN-61 SC (10:11)
[2024-01-18] MEDS ORDERED: LANC30MI XX (10:11)
[2024-01-18 14:50] VITALS: BP 132/45; TEMP 97.2; O2SAT 95
[2024-01-19 21:38] LABS: EBV PCR QUANTITATIVE Not Detected copies/mL; EBV SOURCE Whole Blood; log10 EBV DNA QN PCR Not Detected Log cps/mL
== END 2024-01-18 12:04 | disposition home or self-care (01) ==
LOC: EDBD 09:27 → M ED 09:27 → M ED INP 09:28 → M MSPAV 18:55
PROVIDERS: ADMIT Internal Medicine; ATTEND Internal Medicine
DX: J03.90 Acute tonsillitis, unspecified (principal); E66.01 Morbid (severe) obesity due to excess calories; E11.9 Type 2 diabetes mellitus without complications; E78.5 Hyperlipidemia, unspecified; Z79.2 Long term (current) use of antibiotics; Z79.84 Long term (current) use of oral hypoglycemic drugs; Z91.041 Radiographic dye allergy status; Z91.013 Allergy to seafood; Z91.018 Allergy to other foods; Z91.040 Latex allergy status; Z88.8 Allergy status to other drugs, medicaments and biological substances
CPT/HCPCS: 36415; 70490; 80048; 80053; 80061; 84703; 85025; 85027; 85610; 86140; 86308; 87040; 87799; 92526; 92610; 96365; 96366; 96375; 96376; 99284; J0295; J1100; J1815; J1885; J2470

== ENCOUNTER 2024-06-15 15:11 | Emergency (ER) | payer OTHER ==
[~2024-06-15] VITALS: Ht 154.9 cm; Wt 166.9 kg
[~2024-06-15 15:11] MED LIST changes: +ACET1TAB55 PO; +ALCOPAD25 TOP; +AMOX500T PO; +BLOOKIT21 XX; +DEXA2TA PO; +GLUC1TES2 XX; +IBUP-1720 PO; +LANC30MI XX; +METF-839 PO; +PEN-61 SC
[2024-06-15 15:13] VITALS: TEMP 98.3
[2024-06-15 15:43] LABS: BASO # 0.1 10^3/uL (0.0-0.2); BASO % 0.5 % (0.0-1.0); EOS # 0.2 10^3/uL (0.0-0.5); EOS % 1.3 % (0.0-3.0); HEMATOCRIT 37.3 % (36.0-47.0); HEMOGLOBIN 11.8 g/dl (12.0-15.5); LYMPH # 1.7 10^3/uL (1.5-5.0); LYMPH % 14.1 % (24.0-44.0); MEAN CORPUSCULAR HEMOGLOBIN 26.6 pg (27.0-33.0); MEAN CORPUSCULAR HGB CONC 31.6 g/dl (32.0-36.5); MEAN CORPUSCULAR VOLUME 84.2 fl (80.0-96.0); MONO # 0.8 10^3/uL (0.0-0.8); MONO % 6.7 % (2.0-8.0); NEUTROPHILS # 9.3 10^3/uL (1.5-8.5); NEUTROPHILS % 77.1 % (36.0-66.0); PLATELET COUNT, AUTOMATED 306 10^3/uL (150-450); RED BLOOD COUNT 4.43 10^6/uL (4.00-5.40)
[2024-06-15 15:47] LABS: ERYTHROCYTE SEDIMENTATION RATE 51 mm/hr (0-20)
[2024-06-15 16:13] LABS: BLOOD UREA NITROGEN 13 MG/DL (9-23); C REACTIVE PROTEIN QUANTITATIV 5.33 MG/DL (<1.0); CALCIUM LEVEL 9.4 MG/DL (8.5-10.1); CARBON DIOXIDE LEVEL 29 MMOL/L (20-31); CHLORIDE LEVEL 104 MMOL/L (98-107); CREATININE FOR GFR 0.51 MG/DL (0.55-1.30); GLOMERULAR FILTRATION RATE > 90.0 (>60); GLUCOSE, FASTING 111 MG/DL (60-100); SODIUM LEVEL 142 MMOL/L (136-145)
[2024-06-15 16:16] LABS: HCG, SERUM QUALITATIVE NEGATIVE (NEGATIVE)
[2024-06-15] MEDS: AMPICILLIN SOD/SULBACTAM SOD 3 GM in DEXTROSE 5% (D5W) MINI-BAG PLU 100 ML IV ONE (18:30)
[2024-06-15] MEDS: dexAMETHasone 20MG/5ML VIAL IV ONE (18:59)
[2024-06-15] MEDS: ACETAMINOPHEN *IV* 1,000 MG in IV 1 EA IV ONE (19:03)
[2024-06-15 19:12] LABS: MONO SCRN NEGATIVE (NEGATIVE)
[2024-06-15 20:15] VITALS: BP 138/75; O2SAT 95
[2024-06-15] MEDS ORDERED: PRED20TA PO (20:35)
[2024-06-15] MEDS ORDERED: AMOX875T2 PO (20:35)
== END 2024-06-15 21:06 | disposition home or self-care (01) ==
LOC: M ED 15:11
DX: J36 Peritonsillar abscess (principal); E11.9 Type 2 diabetes mellitus without complications; I10 Essential (primary) hypertension; J45.909 Unspecified asthma, uncomplicated; Z91.041 Radiographic dye allergy status; Z91.013 Allergy to seafood; Z91.040 Latex allergy status; Z91.048 Other nonmedicinal substance allergy status; Z79.52 Long term (current) use of systemic steroids; Z79.2 Long term (current) use of antibiotics; Z79.899 Other long term (current) drug therapy
CPT/HCPCS: 70490; 80048; 84703; 85025; 85652; 86140; 86308; 96365; 96366; 96367; 96375; 96376; 99284; J0131; J0295; J1100

== ENCOUNTER 2024-08-29 15:57 | Emergency (ER) | payer OTHER ==
[~2024-08-29] VITALS: Ht 154.9 cm; Wt 164.1 kg
[2024-08-29] MEDS: IPRATROPIUM 0.5 MG/ALBUTEROL 2.5 MG INH SOL UD 3 ML NEB ONE (17:49)
[2024-08-29] MEDS ORDERED: AMOX875T PO (18:14)
[2024-08-29] MEDS ORDERED: MUCI1TAB16 PO (18:14)
[2024-08-29 18:26] VITALS: BP 148/90; TEMP 97.9; O2SAT 97
== END 2024-08-29 18:27 | disposition home or self-care (01) ==
LOC: M ED 15:57
DX: J45.901 Unspecified asthma with (acute) exacerbation (principal); H66.91 Otitis media, unspecified, right ear; I10 Essential (primary) hypertension; F17.200 Nicotine dependence, unspecified, uncomplicated; Z91.041 Radiographic dye allergy status; Z88.8 Allergy status to other drugs, medicaments and biological substances; Z91.040 Latex allergy status; Z91.013 Allergy to seafood; Z79.52 Long term (current) use of systemic steroids; Z79.1 Long term (current) use of non-steroidal anti-inflammatories (NSAID); Z79.899 Other long term (current) drug therapy